=== PATIENT | male | born 1945 | race Caucasian/White ===

== ENCOUNTER 2020-01-14 14:46 | Inpatient (IN) ==
--- NOTE | 2020-01-14 15:31 | EKG Report ---
Test Performed on : 01/14/2020 3:25:23 PM Test Reason : dyspnea/ arrythmia Blood Pressure : / mmHG Vent. Rate : 108 BPM Atrial Rate : 108 BPM P-R Int : 200 ms QRS Dur : 140 ms QT Int : 380 ms P-R-T Axes : 059 010 004 degrees QTc Int : 509 ms Sinus tachycardia. with premature atrial complexes. with aberrant conduction. Right bundle branch block Abnormal ECG When compared with ECG of 05-DEC-2017 08:56, premature ventricular complexes. are no longer present Unconfirmed Result
--- NOTE | 2020-01-14 15:35 | PROVIDER DOCUMENTATION ---
HPI-General Adult - General Chief Complaint: Shortness of Breath Stated Complaint: DIFFICULTY BREATHING COUGH Time Seen by Provider: 01/14/20 14:49 Source: patient Allergies/Adverse Reactions: Patient Allergies Allergy/AdvReac Type Severity Reaction Status Date / Time oxycodone [From Percocet] AdvReac DIZZINESS Verified 01/14/20 15:30 Home Medications: Home Medication List Medication Instructions Recorded Confirmed Last Taken Type Diltiazem HCl [Tiazac] 360 mg PO DAILY 10/27/13 01/14/20 12/05/17 06:30 History Losartan/Hydrochlorothiazide 1 each PO DAILY 10/27/13 01/14/20 12/05/17 06:30 History [Hyzaar 100/25 Tablet] Metformin [Glucophage] 500 mg PO BID CC 10/27/13 01/14/20 12/01/17 History Potassium Chloride [Klor-Con M20] 20 meq PO BID 10/27/13 01/14/20 12/05/17 06:30 History Pravastatin Sodium [Pravachol] 40 mg PO QHS 10/27/13 01/14/20 12/04/17 20:00 History Tiotropium [place] Inhaler 1 puff INH RTDAILY 10/27/13 01/14/20 12/04/17 08:00 History [Spiriva] Aspirin 81 mg PO DAILY 08/08/17 01/14/20 12/01/17 History Omeprazole 40 mg PO QHS 08/08/17 01/14/20 12/04/17 08:00 History Budesonide/Formoterol Inhaler 2 puff INH RTBID 08/15/17 01/14/20 12/04/17 20:00 History [Symbicort 160/4.5 Microgm Inhaler] Amlodipine [Norvasc] 10 mg PO DAILY 12/04/17 01/14/20 12/05/17 06:30 History - History of Present Illness -Gen Adult Nature of Presenting Problems: 74yowm presents with c/o dyspnea, cough, orthopnea, PND, nausea, and decreased appetite for the past 1.5 weeks that has been progressively worsening. Patient does have a PMH of DM, atrial fibrillation, COPD and CHF. Patient states that he also still smokes about 4 cigarettes a day and has smoked for 65years. Location of Pain/Injury: reports: abdomen, back Quality of Pain: reports: cramping Severity: reports: moderate Onset/Duration: reports: other (1.5weeks ago) Timing: reports: still present Context/Activities at Onset: reports: none Modifying Factors: improves with: nothing Associated Symptoms: reports: cough, fatigue, fever/chills, loss of appetite, malaise, nausea, shortness of breath Similar Symptoms Previously?: No Recently seen or treated by another doctor?: No Review of Systems - Adult - REVIEW OF SYSTEMS - ADULT Constitutional: reports: chills, fatique Eyes: reports: no symptoms reported Ears, Nose, Mouth & Throat: reports: no symptoms reported Cardiovascular: reports: no symptoms reported Respiratory: reports: cough, dyspnea on exertion, shortness of breath, wheezing Gastrointestinal: reports: nausea, poor appetite Genitourinary: reports: no symptoms reported Musculoskeletal: reports: back pain Integumentary: reports: no symptoms reported Neurological: reports: no symptoms reported Psychiatric: reports: no symptoms reported Endocrine: reports: no symptoms reported Hematologic/Lymphatic: reports: no symptoms reported Allergic/Immunologic: reports: no symptoms reported All Other Systems: Reviewed and Negative Past History - Adult - PAST MEDICAL HISTORY-ADULT Review of Records: reports: Old Records Reviewed, Nursing Assessment Review, Medications Reviewed, Social history reviewed & non-contributory. Major Childhood Illnesses: reports: denies history Cardiovascular: reports: HTN Respiratory: reports: COPD Gastrointestinal: reports: GERD Obstetrical/Gynecological: reports: denies history Genitourinary: reports: denies history Musculoskeletal: reports: denies history Neurological: reports: denies history Psychiatric: reports: denies history Endocrine/Immune: reports: Diabetes Other Conditions: reports: denies history Additional History: foot surgery with osteomylatis - IMMUNIZATION STATUS Childhood Immunizations: See Nurse Assessment Flu Vaccine: See Nurse Assessment - FAMILY HISTORY Family History: reviewed, not pertinent - SOCIAL HISTORY Smoking: cigarettes, less than 1 pack/day Provider spent 3-5 mins advising pt. on dangers of tobacco.: Discussed manners to quit use, and f/u contacts for add'l counseling. Substance Use: alcohol Alcohol Use Frequency: occasionally Number of drinks per typical drinking period:: 2 drinks Living Situation: alone Physical Exam-General - PHYSICAL EXAM-ADULT Initial Vital Signs Reviewed: Yes - CONSTITUTIONAL General Appearance: alert, mild distress - EYES Eyes: PERRL/EOMI, pink conjunctivae - HEAD, EARS, NOSE, MOUTH & THROAT HENMT: moist mucous membranes - NECK Neck: non-tender, full range of motion - RESPIRATORY Respiratory: respiratory distress, accessory muscle use, crackles, rales, rhonchi, wheezing - CARDIOVASCULAR Cardiovascular: normal peripheral pulses, no JVD. negative: regular rate, rhythm, no edema - GASTROINTESTINAL (ABDOMEN) Abdominal Exam: normal bowel sounds, non tender, soft - LYMPHATIC Lymphatic: no adenopathy - MUSCULOSKELETAL Extremity: normal range of motion, non-tender, normal gait. negative: no pedal edema (right leg edema) Peripheral Pulses: radial (R): 2+, radial (L): 2+, dorsalis-pedis (R): 2+, dorsalis-pedis (L): 2+ - SKIN Integumentary: warm/dry - NEUROLOGIC Neurologic: grossly normal - PSYCHIATRIC Psych/Mental Status: normal thought process, oriented x 3 Progress - PLAN OF CARE/RESULTS Progress/Plan/Lab Results: Vital Signs - 8 hr 01/14/20 14:54 Temperature 99 F Pulse Rate 99 H Respiratory Rate 26 H Blood Pressure 122/60 O2 Sat by Pulse Oximetry 89 L Orders Category Date Time Status NEWS Score 2-4:Order NEWS Lactate Series NOW Care 01/14/20 15:26 Ordered Nursing- Obtain EKG ONCE Care 01/14/20 15:26 Ordered CHEST-PORTABLE [RAD] Stat Exams 01/14/20 15:24 Ordered CBC WITH DIFF [HEME] Stat Lab 01/14/20 15:24 Uncollected CK PROFILE [SP CHEM] Stat Lab 01/14/20 15:24 Uncollected COMPREHENSIVE METABOLIC PANEL [CHEM] Stat Lab 01/14/20 15:24 Uncollected D-DIMER [COAG] Stat Lab 01/14/20 15:24 Uncollected PRO B-NATRIURETIC PEPTIDE Stat Lab 01/14/20 15:24 Uncollected PROTIME WITH INR [COAG] Stat Lab 01/14/20 15:24 Uncollected TROPONIN T HIGH SENSITIVITY Stat Lab 01/14/20 15:24 Uncollected URINALYSIS W/POSS RFLX CULT [URINALYSIS] Stat Lab 01/14/20 15:24 Uncollected EKG [EKG] Stat Ther 01/14/20 15:26 Ordered Result Diagrams: 01/14/20 15:20 01/14/20 15:20 - XRAY 1 XRAY Study: Chest Impression: See EMR Report (FINDINGS: Stable cardiomegaly. There is slight worsening hazy interstitial infiltrates in the lung bases bilaterally. No pneumothorax or significant pleural effusion. IMPRESSION: Cardiomegaly. Worsening bibasilar infiltrates most suggestive of pulmonary edema. Electronically signed by Elia Domínguez 01/14/2020 4:16 PM) - CONSULTS/PCP/HOSPITALIST Notification #1 *Consult/PCP/Hospitalist*: DWIGHT Mcmahon for DR. Wright Time Discussed: 16:45 Reason/Comments: admit patient Consult Disposition: Will see in ED Departure - Departure Date of Disposition Decision: 01/14/20 Time of Disposition Decision: 16:48 DIAGNOSIS: GISELL (acute kidney injury) Pneumonia Qualifiers: Pneumonia type: due to unspecified organism Laterality: bilateral Lung location: lower lobe of lung Qualified Code(s): J18.1 - Lobar pneumonia, unspecified organism Disposition: ADMITTED INPATIENT 09 Certified Medical Emergency: Emergent Condition: Fair Referrals and Follow-Ups: Nidhi Cooper MD [Primary Care Provider] - - Critical Care Note This patient required my direct & personal management of CC.: No Attestation - Physician/ HECTOR Attestation Patient care was provided by Advanced Practice Provider:: Yes Advanced Practice Provider:: Mindy Sheppard Advanced Practice Provider documentation review:: The Mid-level provider documentation, treatment plan and medical decision making was reviewed by the physician who agrees with all treatment and medical decision making by the MLP. The physician spent face to face time with patient:: No Advanced Practice Provider documentation review:: Supervising physician onsite and consulted in the evaluation and care of this patient. The physician did not have a face to face encounter with the patient.
[2020-01-14 15:40] LABS: BASO# 0.11 X1000 (0.0-0.2); BASO% 0.5 % (0.0-0.8); EOS# 0.02 X1000 (0.0-0.7); EOS% 0.1 % (0.0-10.0); HEMATOCRIT 29.2 % (42.0-52.0); HEMOGLOBIN 8.8 g/dL (14.0-18.0); IMM GRAN# 0.12 X1000 (0.0-0.04); IMM GRAN% 0.5 % (0.0-0.5); LYMPH# 0.93 X1000 (1.2-3.4); LYMPH% 4.1 % (20.5-51.1); MCH 18.7 PG (27-31); MCHC 30.1 g/dL (33-37); MONO# 2.52 X1000 (0.11-0.59); MONO% 11.2 % (1.7-9.3); MPV 9.2 FL (7.4-10.4); NEUT# 18.89 X1000 (1.4-6.5); NEUT% 83.6 % (42.2-75.2); PLT 382 X1000 (130-400); RBC 4.71 XMIL (4.7-6.1); RDW 20.5 % (11.5-14.5); WBC 22.59 X1000 (4.8-10.8)
[2020-01-14 15:47] LABS: INR 1.58; PROTIME 19.2 Seconds (11.0-16.0)
[2020-01-14 16:11] LABS: ALB/GLOB RATIO 1.1; ALBUMIN 3.4 g/dL (3.5-5.0); CALCIUM 9.2 mg/dL (8.8-10.2); CREATININE 1.5 mg/dL (0.7-1.2); POTASSIUM 3.4 mmol/L (3.5-5.1); TOTAL BILIRUBIN 0.56 mg/dL (0.20-1.00); TOTAL PROTEIN 6.5 g/dL (6.3-8.3)
--- NOTE | 2020-01-14 16:19 | Diag Imaging Result Doc PS360 ---
CHEST-PORTABLE - 01/14/2020 INDICATION: dyspnea COMPARISON: 02/21/2018 FINDINGS: Stable cardiomegaly. There is slight worsening hazy interstitial infiltrates in the lung bases bilaterally. No pneumothorax or significant pleural effusion. IMPRESSION: Cardiomegaly. Worsening bibasilar infiltrates most suggestive of pulmonary edema. Electronically signed by Elia Domínguez 01/14/2020 4:16 PM
[2020-01-14] MEDS ORDERED: ROCEPHIN 1 GM in NS 50 ML IV ONE (16:29)
[2020-01-14] MEDS ORDERED: ZITHROMAX 500 MG/NS 500 MG/250 ML IVPB IV ONE (16:29)
[2020-01-14] MEDS ORDERED: SOLU-MEDROL IV ONE (17:36)
--- NOTE | 2020-01-14 18:11 | HISTORY AND PHYSICAL ---
PRIMARY CARE PHYSICIAN: Dr. Nidhi Cooper. CHIEF COMPLAINT: Shortness of breath, cough, decreased appetite over the past week and a half that has progressively worsened. HISTORY OF PRESENTING ILLNESS: This is a 74-year-old male who presents to [facility] with complaints of shortness of breath, cough, orthopnea, and decreased appetite over the past week and a half that progressively worsened. Has a history of COPD and CHF and continues to smoke about 4 cigarettes a day. He has smoked for about 65 years. When he arrived, he had an O2 saturation of 89% on 2 L. His white blood cell count was 22.59. BUN was 28 with a creatinine of 1.5. Chest x-ray showed slightly worsening hazy interstitial infiltrates in the lung bases bilaterally. So, he will be admitted to the medical unit for further evaluation and treatment. PAST MEDICAL HISTORY: Hypertension, COPD, GERD and diabetes type 2. PAST SURGICAL HISTORY: Hiatal hernia and a foot surgery. FAMILY HISTORY: Reviewed and noncontributory. SOCIAL HISTORY: He currently smokes approximately 4 cigarettes a day and has been a smoker for about 65 years. He denied any alcohol or illicit drug use. ALLERGIES: Oxycodone. HOME MEDICATIONS: He takes Norvasc 10 mg p.o. daily, aspirin 81 mg p.o. daily, Symbicort 160/4.5, a 2-puff inhalation b.i.d., Tiazac 360 mg p.o. daily, losartan/hydrochlorothiazide 100/25 one p.o. daily (will be held), metformin 500 mg p.o. b.i.d. (will be held), omeprazole 40 mg p.o. at bedtime, potassium 20 mEq p.o. b.i.d. Pravachol 40 mg p.o. at bedtime and Spiriva 1 puff inhalation daily. LABORATORY DATA: Showed a white blood cell count of 22.59, hemoglobin 8.8, hematocrit 29.2, platelets 382, PT and INR of 19.2 and 1.58, with a D-dimer of less than 0.27. Sodium of 133, potassium of 3.4, chloride of 93, CO2 of 25, BUN of 28, creatinine of 1.5, glucose of 125. Cardiac enzyme was negative. Plasma lactate of 2.2. Chest x-ray showed slightly worsening hazy interstitial infiltrates in the lung bases bilaterally, suggestive of pulmonary edema, and some cardiomegaly. EKG showed sinus tachycardia with PACs with aberrant conduction at 108. REVIEW OF SYSTEMS: He denied any fever, chills, blurred vision, dizziness, chest pain. He has had a productive cough, shortness of breath, orthopnea, decreased appetite, nausea. Denied any vomiting, constipation, diarrhea or burning or hurting with urination. PHYSICAL EXAMINATION: VITAL SIGNS: On arrival he had a temperature of 99, pulse 99, respirations 26 blood pressure 122/60, saturating 89% on 2 L. GENERAL: This is a 74-year-old male who is sitting up in the bed and answers questions appropriately. HEENT: Normocephalic, atraumatic. Normal ENT inspection. Oropharynx and nares are clear. EYES: Pupils are equal, round, and reactive to light and accommodation. Extraocular movements are intact. NECK: Normal inspection, normal range of motion. LUNGS: With some rales, rhonchi and wheezing throughout posterior lung gonzalez. Equal lung expansion and chest wall movement noted. O2 via nasal cannula in use. HEART: Regular rate and rhythm. No murmurs, rubs, or gallops. ABDOMEN: Soft, nontender, nondistended. Bowel sounds are present x4 quadrants. Musculoskeletal: He has 4/5 strength x4 extremities. NEUROLOGICAL: The cranial nerves II-XII appear grossly intact. ASSESSMENT: 1. Bilateral lower lobe pneumonia. 2. Leukocytosis secondary to #1. 3. Acute respiratory failure. 4. Acute kidney injury. 5. Acute chronic obstructive pulmonary disease exacerbation. PLAN: He will be admitted to the medical unit and placed on telemetry, O2 per protocol diabetic diet, incentive spirometry, and turn, cough and deep breathe. We will do SCDs for DVT prophylaxis. Place on Rocephin 1 gram IV every 24 hours, azithromycin 500 IV every 24 hours (he received both doses of those in the emergency room), normal saline at 75 mL/hr. Continue home medications. DuoNeb every 4 hours and Solu-Medrol 80 mg IV every 8 hours. Recheck CBC and BMP in the a.m. Further orders after seen by attending. Dictated by DWIGHT Elena for Tam Wright MD cc: Salome DWIGHT Mata MD Marlin D. Gill, MD I agree with most components of history, physical, assessment and plan. A separate addendum has been dictated. [facility]
[2020-01-14] MEDS ORDERED: CARDIZEM CD PO ONE (18:20)
[2020-01-14] MEDS ORDERED: ASPIRIN PO STA (18:20)
[2020-01-14] MEDS ORDERED: CARDIZEM IV ONE (18:21)
[2020-01-14] MEDS ORDERED: LASIX IV ONE (18:22)
[2020-01-14] MEDS ORDERED: LIPITOR PO ONE (18:22)
--- NOTE | 2020-01-14 18:27 | SEPSIS: TISSUE PERFUSION ASSMT ---
Sepsis: Tissue Perfusion Assmt - Physical Exam Assessment Date: 01/14/20 Time Assessment Initialized: 18:15 Vital Signs: Last Vital Signs Temp 99 F 01/14/20 14:54 Pulse 114 H 01/14/20 18:20 Resp 24 01/14/20 18:20 BP 122/60 01/14/20 14:54 Pulse Ox 89 L 01/14/20 14:54 Height 5 ft 7 in Weight 77.111 kg Lung Sounds: crackles Heart Sounds: Irregular Capillary Refill Time: Less Than 2 Seconds Peripheral Pulse Evaluation: radial (R): 2+, radial (L): 2+, dorsalis-pedis (R): 2+, dorsalis-pedis (L): 2+, posterior tibialis (R): 2+, posterior tibialis (L): 2+ Skin Exam: pink - Alternative Fluid Bolus Bolus Option: Alternative Fluid Resuscitation Bolus for morbidly obese patients with a BMI >30, Refer to [place] Body Weight Chart for Reference. Is patient's BMI >30?: No - Impression Impression: Tissue Perfusion Adequate (No bolus ordered considering suspected CHF.)
[2020-01-14] MEDS: KLOR-CON PO SCH ×3 (18:45→21:45)
[2020-01-14] MEDS: LOVENOX SUBQ SCH (18:45)
--- NOTE | 2020-01-14 18:56 | HISTORY AND PHYSICAL ---
ADDENDUM: This is an addendum to History and Physical dictated by nurse practitioner. I agree with most components of history, physical, assessment, and plan dictated in the nurse practitioner's note. In brief, Mr. Palacios is a 74-year-old man with past medical history of angiographically diagnosed coronary artery disease, managed medically, essential hypertension, noninsulin-dependent diabetes mellitus, COPD, chronic hypoxic respiratory failure on home oxygen, active tobacco abuse, atrial fibrillation on chronic anticoagulation, obstructive sleep apnea, not compliant with CPAP, who comes in with chief complaints of shortness of breath, cough with yellowish expectoration, chest pressure of about 10 days' duration. He also had associated nausea and decreased appetite. In the emergency room, he was found to have temperature of 99 degrees, pulse of 114, respiratory rate 24, blood pressure 122/60, and he was saturating between 85 to 90 percent on 5 L nasal cannula on my evaluation. He was given a dose of ceftriaxone and azithromycin, and hospitalist team was consulted for further management. At the time of my evaluation, Mr. Palacios is not in acute distress. He states that his chest pressure has diminished. He is feeling short of breath, but he states he is pretty close to his baseline. However, cough with expectoration is new. He denies any orthopnea. He is complaining of chills without fever. REVIEW OF SYSTEMS: Positive for chest pressure. Positive for lower extremity edema. Positive for nausea. Positive for poor appetite. Negative for any stent in the past. VITAL SIGNS: Temperature currently 99 degrees, pulse 140 on my evaluation, respiratory rate 24, blood pressure 122/60. He was saturating 89% on 4 L. PHYSICAL EXAMINATION: ORAL CAVITY: Moist. LUNGS: He has inspiratory crackles in the left infrascapular region. CARDIOVASCULAR: S1, S2 normal. Irregularly irregular. No murmur or gallop. No wheeze or rhonchi. Otherwise, air entry bilaterally equal. ABDOMEN: Soft, nontender. NECK: No jugular venous distention. EXTREMITIES: He has mild bilateral lower extremity edema, more pronounced on the right ankle than on the left. NEUROLOGIC: He is alert and oriented x3. LABS: Suggestive of WBC of 22,000, hemoglobin 8.8, platelet of 382,000. His potassium was 3.4, BUN 28, creatinine 1.5, proBNP of 4600. MICROBIOLOGY: Influenza screen is pending. Blood cultures are in Lab. IMAGING: Chest x-ray suggests cardiomegaly with bibasilar infiltrates, suggestive of pulmonary edema. ASSESSMENT AND PLAN: 1. Sepsis and acute hypoxic respiratory failure, due to left lower lobe pneumonia and acute pulmonary edema. 2. Left lower lobe bacterial pneumonia. 3. History of obstructive sleep apnea. 4. Atrial fibrillation with rapid ventricular response. 5. Microcytic anemia. 6. Hyponatremia, hypokalemia, hypochloremia, and acute kidney injury. 7. Active tobacco abuse with history of chronic obstructive pulmonary disease, with mild acute exacerbation. 8. History of noninsulin-dependent diabetes mellitus. 9. History of coronary artery disease, with elevated troponin and suspicion for acute systolic congestive heart failure. PLAN: 1. I will start patient on oxygen and will transition him to potentially Ventimask and BiPAP as needed. 2. I will treat him with intravenous ceftriaxone and azithromycin. Follow up with blood cultures, sputum culture, urine antigen results. 3. I will treat him with inhaled bronchodilators for mild chronic obstructive pulmonary disease exacerbation and intravenous steroids. 4. I will give him stat dose of aspirin, statin, therapeutic anticoagulation dose of enoxaparin, and trend troponins, and also follow up with echocardiogram. 5. I will admit patient to [facility]. Plan of care discussed with him. He was counseled about smoking cessation. He was allowed to ask questions. All of his questions were satisfactorily answered. cc: Tam Wright MD
[2020-01-14 19:13] LABS: URINE SOURCE CLEAN CATCH
[2020-01-14 19:16] LABS: BILIRUBIN URINE NEGATIVE (NEGATIVE); BLOOD URINE NEGATIVE (NEGATIVE); CLARITY CLEAR (CLEAR); COLOR YELLOW; GLUCOSE URINE NEGATIVE (NEGATIVE); KETONE URINE NEGATIVE (NEGATIVE); LEUKOCYTES URINE NEGATIVE (NEGATIVE); NITRITE URINE NEGATIVE (NEGATIVE); PROTEIN URINE NEGATIVE (NEGATIVE); SP GRAVITY URINE 1.015; UROBILINOGEN URINE 0.2 EU/dL (0.2-1.0)
[2020-01-14 19:28] LABS: URINE BACTERIA NEGATIVE /HFP; URINE EPITHELIAL CELLS <10 /HPF (<10); URINE RBC <10 /HPF (<10); URINE WBC <10 /HPF (<10)
[2020-01-14 19:33] LABS: IRON SATURATION 4 %; TIBC 330 ug/dL; TOTAL IRON 12 ug/dL (53-167); UNBOUND IRON 318 ug/dL (112-346)
[2020-01-14] MEDS ORDERED: NS 1,000 ML IV SCH (21:15)
[2020-01-14] MEDS ORDERED: TYLENOL PO PRN (21:15)
[2020-01-14] MEDS ORDERED: KLOR-CON PO SCH (21:15)
[2020-01-14] MEDS ORDERED: PRAVACHOL PO SCH (21:15)
[2020-01-14] MEDS: HUMALOG SUBQ SCH (21:43)
[2020-01-14] MEDS: PRILOSEC PO SCH (21:44)
[2020-01-14] MEDS: DUONEB (A & A) INH SCH ×2 (22:42→23:40)
[2020-01-14] MEDS: SYMBICORT 160/4.5 MICROGM INHALER INH SCH (23:40)
[2020-01-15] MEDS ORDERED: SOLU-MEDROL IV SCH (01:30)
[2020-01-15] MEDS: DUONEB (A & A) INH SCH ×2 (03:35→08:15)
[2020-01-15 06:25] LABS: BASO# 0.03 X1000 (0.0-0.2); BASO% 0.1 % (0.0-0.8); HEMOGLOBIN 8.2 g/dL (14.0-18.0); IMM GRAN% 0.4 % (0.0-0.5); LYMPH# 0.41 X1000 (1.2-3.4); LYMPH% 1.7 % (20.5-51.1); MCH 18.3 PG (27-31); MCHC 29.3 g/dL (33-37); MCV 62.5 FL (81-99); MONO# 0.29 X1000 (0.11-0.59); MONO% 1.2 % (1.7-9.3); MPV 9.1 FL (7.4-10.4); NEUT# 23.09 X1000 (1.4-6.5); NEUT% 96.6 % (42.2-75.2); PLT 379 X1000 (130-400); RBC 4.48 XMIL (4.7-6.1); RDW 20.5 % (11.5-14.5); WBC 23.92 X1000 (4.8-10.8)
[2020-01-15 06:40] LABS: CALCIUM 8.9 mg/dL (8.8-10.2); CREATININE 1.4 mg/dL (0.7-1.2); MAGNESIUM 1.3 mg/dL (1.5-2.7); POTASSIUM 3.2 mmol/L (3.5-5.1)
[2020-01-15 06:50] LABS: LYMPHS 1 % (21-51); MONO 1 % (1-9); SEGS 98 % (42-75)
[2020-01-15] MEDS: HUMALOG SUBQ SCH ×4 (06:56→21:01)
[2020-01-15] MEDS: LOVENOX SUBQ SCH ×2 (06:57→18:46)
--- NOTE | 2020-01-15 07:26 | EKG Report ---
Test Performed on : 01/14/2020 7:33:46 PM Test Reason : ED. NO EKG ORDER FOR MUSE Blood Pressure : / mmHG Vent. Rate : 110 BPM Atrial Rate : 129 BPM P-R Int : 000 ms QRS Dur : 138 ms QT Int : 330 ms P-R-T Axes : 000 017 011 degrees QTc Int : 446 ms Atrial fibrillation. with rapid ventricular response. Right bundle branch block Abnormal ECG When compared with ECG of 14-JAN-2020 15:25, (Unconfirmed) Atrial fibrillation. has replaced Sinus rhythm. Unconfirmed Result
[2020-01-15] MEDS: SPIRIVA INH SCH (08:15)
[2020-01-15] MEDS: SYMBICORT 160/4.5 MICROGM INHALER INH SCH ×2 (08:15→19:55)
[2020-01-15] MEDS: KLOR-CON PO SCH ×2 (10:20→21:02)
[2020-01-15] MEDS: CARDIZEM CD PO SCH (10:20)
[2020-01-15] MEDS: ASPIRIN PO SCH (10:20)
[2020-01-15] MEDS: NORVASC PO SCH (10:20)
[2020-01-15] MEDS: PREDNISONE PO SCH (10:20)
[2020-01-15] MEDS: POTASSIUM CHLORIDE 20 MEQ/SWI 20 MEQ/100 ML IVPB IV SCH ×2 (10:25→17:08)
[2020-01-15] MEDS: FERROUS SULFATE PO SCH (10:25)
[2020-01-15] MEDS: MAGNESIUM SULFATE 2 GM/S.W.I. 2 GM/50 ML IVPB IV SCH ×2 (10:25→11:47)
[2020-01-15] MEDS: LIPITOR PO SCH (10:25)
--- NOTE | 2020-01-15 10:49 | PROGRESS NOTE ---
DATE: 01/15/2020 INTERVAL HISTORY: No acute events overnight. Mr. Palacios was started on BiPAP and was transferred to [facility]. His troponin had flat trend. SUBJECTIVE: In the morning time, Mr. Palacios is feeling significantly better. He denies any more chest pressure. His shortness of breath has improved. His cough has improved. He is feeling chilly, but denies any fever. REVIEW OF SYSTEMS: Negative for nausea. Negative for vomiting. Negative for abdominal pain. Negative for burning while passing urine. Negative for diarrhea. OBJECTIVE: Vital Signs: Temperature of 98.3 degrees, pulse 115, respiratory rate 18, blood pressure 132/85, he is saturating 93% on 6 L nasal cannula. General: Mr. Palacios is not in any acute distress. HEENT: Oral cavity is moist. He has diminished air entry with inspiratory crackles in the left infrascapular region. Otherwise, adequate air entry to bilateral lung gonzalez. Mild end-expiratory wheezes. No rhonchi. Heart: S1, S2 normal. Irregularly irregular, tachycardic. No murmur or gallop. Abdomen: Soft, nontender. Active bowel sounds. Extremities: He has mild lower extremity edema around ankles, more pronounced on the right than on the left. Neurologic: He is alert and oriented x3. LABORATORY DATA: WBC of 23,000, hemoglobin 8.2, with platelets of 379,000. His potassium is 3.2, BUN of 28, creatinine 1.4. His troponin is showing a flat trend. His magnesium is 1.3. Sputum culture and blood culture are in lab. Influenza screen was negative. No new imaging. ASSESSMENT AND PLAN: 1. Sepsis and acute hypoxic respiratory failure due to left lower lobe pneumonia and partly a component of acute pulmonary edema. Continue inhaled bronchodilators, intravenous ceftriaxone and azithromycin. Follow up blood cultures, sputum culture, and urine antigen results. 2. Acute pulmonary edema with bilateral lower extremity edema and history of coronary artery disease diagnosed angiographically in 2016 and managed medically. He received a 1 time dose of intravenous Lasix. I will follow up with echocardiogram to assess his ejection fraction. Based on that, I will order further Lasix dosing. His troponins were showing flat trend. 3. Atrial fibrillation with rapid ventricular response. Continue oral diltiazem, and I will continue enoxaparin, therapeutic dose, for primary cerebrovascular accident prophylaxis. He claims to be using Eliquis at home, and I will resume it as appropriate. Continue home aspirin, and I added high-dose atorvastatin for his hyperlipidemia. 4. Microcytic anemia with iron deficiency without history of melena, hematochezia. This could be in the setting of chronic blood loss due to use of anticoagulation vs other causes. He stated that he had colonoscopy about 2 years ago, which was unremarkable. I will advise him outpatient followup. Start him on iron supplementation and follow up occult blood. 5. Hypokalemia and hypomagnesemia, currently being repleted. 6. Others. Continue sliding scale insulin for noninsulin-dependent diabetes mellitus. He was counseled about tobacco cessation for his history of chronic obstructive pulmonary disease. 7. Disposition. Monitor the patient in [facility]. Plan of care discussed with him. His questions have been answered. I called his daughter to update her about Mr. Palacios's clinical condition and left her a voice message. 35 minutes were spent in taking care of him. cc: Tam Wright MD MTDD
[2020-01-15] MEDS: XOPENEX HFA INH SCH ×4 (11:49→23:30)
[2020-01-15] MEDS: ATROVENT HFA INH SCH ×2 (15:53→19:55)
[2020-01-15] MEDS ORDERED: ZITHROMAX 500 MG/NS 500 MG/250 ML IVPB IV SCH (16:00)
[2020-01-15] MEDS ORDERED: ROCEPHIN 1 GM in NS 50 ML IV SCH (17:00)
[2020-01-15] MEDS ORDERED: PRAVACHOL PO SCH (21:00)
[2020-01-15] MEDS: PRILOSEC PO SCH (21:02)
[2020-01-16] MEDS: XOPENEX HFA INH SCH ×6 (03:35→23:26)
[2020-01-16] MEDS: ATROVENT HFA INH SCH ×4 (03:35→20:20)
[2020-01-16] MEDS: LOVENOX SUBQ SCH ×2 (06:06→18:15)
[2020-01-16] MEDS: HUMALOG SUBQ SCH ×4 (06:11→22:56)
[2020-01-16 06:35] LABS: CALCIUM 8.9 mg/dL (8.8-10.2); CREATININE 1.6 mg/dL (0.7-1.2); MAGNESIUM 2.2 mg/dL (1.5-2.7); POTASSIUM 3.8 mmol/L (3.5-5.1)
[2020-01-16] MEDS: SPIRIVA INH SCH (08:04)
[2020-01-16] MEDS: SYMBICORT 160/4.5 MICROGM INHALER INH SCH ×2 (08:05→20:19)
[2020-01-16] MEDS: KLOR-CON PO SCH ×2 (08:10→20:09)
[2020-01-16] MEDS: ASPIRIN PO SCH (08:10)
[2020-01-16] MEDS: LIPITOR PO SCH (08:10)
[2020-01-16] MEDS: FERROUS SULFATE PO SCH (08:10)
[2020-01-16] MEDS: NORVASC PO SCH (08:10)
[2020-01-16] MEDS: CARDIZEM CD PO SCH (08:11)
[2020-01-16] MEDS: PREDNISONE PO SCH (08:11)
--- NOTE | 2020-01-16 10:07 | ECHO REPORT ---
ORDER DATE: 01/14/2020 MEASUREMENTS: Left ventricular internal diameter end diastole 4.8, aortic root 3.2, left atrium 3.6. SUMMARY: 1. Very difficult study for interpretation due to very limited acoustic window quality. 2. The aortic valve is trileaflet and appears mildly sclerotic with normal opening evident on 2- dimensional images. The peak gradient across aortic valve is 12 mmHg with a mean gradient of 6 mmHg. Mitral and tricuspid valves are without gross structural abnormality while the pulmonic valve is not seen. There is mild tricuspid regurgitation. The estimated systolic PA pressure by Doppler is 45 to 50 mmHg suggesting moderate pulmonary hypertension. The aortic root is normal size. 3. Normal left ventricular chamber size with mild concentric left ventricular hypertrophy suggested. The estimated left ventricular ejection fraction appears to be at least 65%. No regional wall motion abnormality can be appreciated. The left atrium is mildly enlarged on 2- dimensional images. The right atrium and right ventricle are normal in size with grossly preserved right ventricular systolic function. 4. No pericardial effusion. 5. Appearance of the inferior vena cava suggests normal central venous pressure. cc: MD Tam Andrade MD
[2020-01-16 10:22] LABS: BASO# 0.03 X1000 (0.0-0.2); BASO% 0.1 % (0.0-0.8); EOS# 0.07 X1000 (0.0-0.7); EOS% 0.3 % (0.0-10.0); HEMATOCRIT 26.9 % (42.0-52.0); HEMOGLOBIN 7.8 g/dL (14.0-18.0); IMM GRAN# 0.17 X1000 (0.0-0.04); IMM GRAN% 0.8 % (0.0-0.5); LYMPH# 0.67 X1000 (1.2-3.4); MCH 18.2 PG (27-31); MCV 62.9 FL (81-99); MONO# 0.93 X1000 (0.11-0.59); MONO% 4.2 % (1.7-9.3); MPV 9.5 FL (7.4-10.4); NEUT# 20.51 X1000 (1.4-6.5); NEUT% 91.6 % (42.2-75.2); PLT 449 X1000 (130-400); RBC 4.28 XMIL (4.7-6.1); RDW 20.6 % (11.5-14.5); WBC 22.38 X1000 (4.8-10.8)
[2020-01-16 10:52] LABS: ANISOCYTOSIS 2+; BANDS 6 % (0-1); LYMPHS 6 % (21-51); MICROCYTOSIS 3+; SEGS 88 % (42-75); TARGET CELLS 1+
--- NOTE | 2020-01-16 11:52 | PROGRESS NOTE ---
DATE: 01/16/2020 SUBJECTIVE: The patient reports feeling fine. Not short of breath. He was walking in the room upon my examination. OBJECTIVE: Vital Signs: Temperature 97.4 degrees, heart rate 82, respiratory rate 19, blood pressure 128/61, and O2 saturation 95% on 6 liters nasal cannula. General: This is a chronically ill-looking 74-year-old male, lying in bed, in no acute distress. Cardiovascular: Irregularly irregular heart rhythm. No murmurs, gallops, or rubs noted. Respiratory: Wheezing and crackles noted in both pulmonary gonzalez, mostly noted in the left base. The patient is not using any accessory muscles or having work of breathing. Abdomen: Soft, nontender to palpation. Bowel sounds present. No organomegaly. Extremities: No clubbing, cyanosis, there is edema in both lower extremities. More pronounced on the right. Neurological: Patient alert and oriented x3. Moves 4 extremities. LABORATORY DATA: White cell count 22.38, hemoglobin 7.8, hematocrit 26.9, platelets 449,000. BMP remarkable for potassium 3.8 and creatinine 1.6 and sodium 130. ASSESSMENT AND PLAN: 1. Sepsis and acute hypoxemic respiratory failure secondary to left lower lobe pneumonia, partially component of acute pulmonary edema. Patient white cell count continues to be very elevated, basically 22,000 over the last 3 days, so I think at this point I am going to change antibiotics to Teflaro and Zosyn. We will continue to check complete blood count daily. We will follow up blood cultures, sputum culture and urine culture as well. 2. Acute pulmonary edema with bilateral lower lobe extremity edema and history of coronary artery disease. The patient has been given 1 dose of Lasix. An echocardiogram has been ordered, which basically showed ejection fraction at least 65% with no regional wall motion abnormality. Apparently, there is a moderate pulmonary hypertension. So at this point we will continue to provide Lasix; in this case, it is going to be 40 mg IV daily. 3. Atrial fibrillation with rapid ventricular rate. The patient is on Cardizem CD 360 mg p.o. daily, and heart rate is well controlled. We will continue with same management. 4. Microcytic anemia with iron deficiency with a history of melena. Hemoglobin has dropped from 8.2 to 7.8. We will continue to monitor, and we may need to transfuse if needed. 5. Hypokalemia and hyponatremia, resolved. 6. Diabetes mellitus type 2. We will continue with sliding scale insulin and Accu-Chek before meals and also at bedtime. 7. Disposition. We will continue to monitor this patient closely. cc: Odell Riggs MD
[2020-01-16] MEDS: ZOSYN 2.25 GM in NS 50 ML IV SCH ×2 (12:15→18:15)
[2020-01-16] MEDS: ZYVOX 600 MG/D5W 600 MG/300 ML IVPB IV SCH (13:00)
--- NOTE | 2020-01-16 13:28 | Extremity Venous Study ---
PROCEDURE NAME: Venous U/S Right Leg - 01/14/2020 RIGHT LOWER EXTREMITY VENOUS DUPLEX: REFERRING PHYSICIAN: Dr. Wright. READING PHYSICIAN: Dr. Sneed. LOADER OPERATOR: Jomar. INDICATION: Shortness of breath. FINDINGS: The deep and superficial veins of both lower extremities were imaged throughout their course. They are compressible, patent without thrombus. INTERPRETATION: No DVT or SVT of either lower extremity. cc: MD Tam Ridley MD
[2020-01-16] MEDS: LASIX IV SCH (14:16)
[2020-01-16] MEDS: PRILOSEC PO SCH (20:09)
[2020-01-17] MEDS: ZYVOX 600 MG/D5W 600 MG/300 ML IVPB IV SCH ×2 (00:31→13:13)
[2020-01-17] MEDS: ZOSYN 2.25 GM in NS 50 ML IV SCH ×3 (00:31→12:44)
[2020-01-17] MEDS: XOPENEX HFA INH SCH ×3 (03:14→11:42)
[2020-01-17] MEDS: ATROVENT HFA INH SCH ×2 (03:14→08:20)
[2020-01-17 06:12] LABS: BASO# 0.02 X1000 (0.0-0.2); BASO% 0.1 % (0.0-0.8); HEMATOCRIT 26.3 % (42.0-52.0); HEMOGLOBIN 7.7 g/dL (14.0-18.0); IMM GRAN# 0.22 X1000 (0.0-0.04); IMM GRAN% 1.3 % (0.0-0.5); LYMPH# 0.69 X1000 (1.2-3.4); LYMPH% 4.1 % (20.5-51.1); MCH 18.4 PG (27-31); MCHC 29.3 g/dL (33-37); MCV 62.9 FL (81-99); MONO# 1.54 X1000 (0.11-0.59); MONO% 9.1 % (1.7-9.3); MPV 8.9 FL (7.4-10.4); NEUT# 14.51 X1000 (1.4-6.5); NEUT% 85.4 % (42.2-75.2); PLT 504 X1000 (130-400); RBC 4.18 XMIL (4.7-6.1); RDW 20.3 % (11.5-14.5); WBC 16.98 X1000 (4.8-10.8)
[2020-01-17] MEDS: LOVENOX SUBQ SCH (06:32)
[2020-01-17] MEDS: HUMALOG SUBQ SCH ×2 (06:36→12:44)
[2020-01-17 06:37] LABS: CALCIUM 9.1 mg/dL (8.8-10.2); CREATININE 1.9 mg/dL (0.7-1.2); POTASSIUM 4.8 mmol/L (3.5-5.1)
[2020-01-17 07:07] LABS: BANDS 4 % (0-1); LYMPHS 1 % (21-51); MONO 4 % (1-9); NRBC 1 % (0-0); SEGS 89 % (42-75)
[2020-01-17 07:08] LABS: ANISOCYTOSIS 1+; HYPOCHROM 2+; LARGE PLATELETS 1+; MICROCYTOSIS 2+; POIKILOCYTOSIS 1+
[2020-01-17] MEDS: SYMBICORT 160/4.5 MICROGM INHALER INH SCH (08:20)
[2020-01-17] MEDS: SPIRIVA INH SCH (08:20)
[2020-01-17] MEDS: CARDIZEM CD PO SCH (08:49)
[2020-01-17] MEDS: NORVASC PO SCH (08:49)
[2020-01-17] MEDS: FERROUS SULFATE PO SCH (08:49)
[2020-01-17] MEDS: PREDNISONE PO SCH (08:49)
[2020-01-17] MEDS: KLOR-CON PO SCH (08:49)
[2020-01-17] MEDS: LIPITOR PO SCH (08:49)
[2020-01-17] MEDS: ASPIRIN PO SCH (08:49)
[2020-01-17] MEDS: LASIX IV SCH (08:49)
[2020-01-17 11:37] VITALS: BP 139/61
--- NOTE | 2020-01-17 12:09 | DISCHARGE SUMMARY ---
ADMISSION DATE: 01/14/2020 DISCHARGE DATE: 01/17/2020 REASON FOR ADMISSION: He is a patient of Dr. Nidhi Cooper, presented on 01/14/2020 with shortness of breath, cough, decreased appetite for the past week and a half. HISTORY OF PRESENT ILLNESS: This is a 74-year-old who presented to [facility] with complaints shortness of breath, cough, orthopnea, and decreased appetite over the past week. He has a history of COPD, congestive heart failure. Continues to smoke about 4 cigarettes a day. He has smoked for about 65 years. When he arrived, his O2 saturation was 89% on 2 L, white cell count was 22,590, BUN was 28, creatinine was 1.5. X-ray showed slight worsening, hazy interstitial infiltrates, so admitted to the hospital. PAST MEDICAL HISTORY: Hypertension, COPD, gastroesophageal reflux and diabetes mellitus type 2. ADMISSION DIAGNOSES: 1. Bilateral lower lobe pneumonia. 2. Leukocytosis. 3. Acute respiratory failure. 4. Acute kidney injury. 5. Acute exacerbation of chronic obstructive pulmonary disease. He is on home O2 already. HOSPITAL COURSE: His chest x-ray on 01/14/2020, cardiomegaly, worsening bibasilar infiltrates mostly suggestive of pulmonary edema. His echocardiogram done on 01/14/2020, very difficult study for interpretation. Normal left ventricular size, mild concentric left ventricular hypertrophy. Estimated left ventricular ejection fraction appears to be at least 65%. No regional wall motion abnormality appreciated. Pulmonary pressure estimated about 45 to 50 mmHg. No significant valvular dysfunction. The patient showed steady improvement and was requesting to go home on 01/17/2020. REVIEW OF HIS MEDICATION: I think we will send him home on his Norvasc 10 mg a day, aspirin 81 mg a day, Symbicort 160/4.5 two puffs twice a day, Tiazac 360 mg a day, losartan/hydrochlorothiazide 100/25 one a day, metformin 500 mg p.o. b.i.d., omeprazole 40 mg a day, Klor-Con 20 mEq p.o. b.i.d., Pravachol 40 mg a day and Spiriva 1 puff daily. Currently, he was getting Zosyn for antibiotic. His blood cultures were negative from 01/14/2020. Sputum culture is unremarkable. Influenza swabs negative for A and B, so I will put him on Levaquin 500 mg p.o. daily for another 7 days and he will follow up with his primary care physician. We will let him go home today at his request. cc: Jim Hernandez MD
== END 2020-01-17 14:13 | disposition home or self-care (01) | DRG 193 ==
LOC: ED 14:46 → SUATTDRO 20:50 → 2N 20:50
PROVIDERS: ATTEND Emergency Medicine

== ENCOUNTER 2020-01-28 12:26 | Inpatient (IN) ==
[2020-01-28 13:38] LABS: ALLEN TEST YES; BE 0.9 mmoll (-3.0-3.0); BLOOD TYPE ARTERIAL; HCO3-(ACT) 25.6 mmoll (20.0-26.0); METHB 0.2 % (0.0-1.5); O2(CT) 10.4 mL/dL (15.0-23.0); O2HB 91.4 % (95.0-99.0); PCO2(98.6) 38 mmHg (35-45); PO2(98.6) 70 mmHg (60-100); SAMPLE BLOOD; SAO2 97.5 % (95.0-100.0); pH(98.6) 7.43 (7.35-7.45)
--- NOTE | 2020-01-28 13:39 | EKG Report ---
Test Performed on : 01/28/2020 1:29:10 PM Test Reason : CP Blood Pressure : / mmHG Vent. Rate : 085 BPM Atrial Rate : 085 BPM P-R Int : 188 ms QRS Dur : 126 ms QT Int : 396 ms P-R-T Axes : 036 008 -18 degrees QTc Int : 471 ms Sinus rhythm. with premature supraventricular complexes. and with occasional premature ventricular co mplexes. Right bundle branch block Cannot rule out Inferior infarct , age undetermined Anterior infarct , age undetermined T wave abnormality, consider lateral ischemia Abnormal ECG When compared with ECG of 14-JAN-2020 19:33, (Unconfirmed) Sinus rhythm. has replaced Atrial fibrillation. Minimal criteria for Inferior infarct are now present Unconfirmed Result
[2020-01-28 13:40] LABS: URINE SOURCE CLEAN CATCH
[2020-01-28 13:40] LABS: MODALITY VENTIMASK
[2020-01-28 13:45] LABS: BILIRUBIN URINE NEGATIVE (NEGATIVE); BLOOD URINE NEGATIVE (NEGATIVE); COLOR YELLOW; GLUCOSE URINE NEGATIVE (NEGATIVE); KETONE URINE NEGATIVE (NEGATIVE); LEUKOCYTES URINE NEGATIVE (NEGATIVE); NITRITE URINE NEGATIVE (NEGATIVE); PROTEIN URINE NEGATIVE (NEGATIVE); SP GRAVITY URINE 1.016; TURBIDITY URINE CLEAR (CLEAR); UROBILINOGEN URINE NORMAL (NORMAL)
[2020-01-28 13:46] LABS: UR EPITHELIAL CELLS <10 /HPF (<10); URINE BACTERIA NEGATIVE /HPF; URINE RBC <10 /HPF (<10); URINE WBC <10 /HPF (<10)
--- NOTE | 2020-01-28 13:48 | Diag Imaging Result Doc PS360 ---
CHEST-PORTABLE - 01/28/2020 INDICATION: cough COMPARISON: 01/14/2020 FINDINGS: Stable cardiomegaly and pulmonary vascular congestion. There is no significant change in the hazy increased markings in the lung bases bilaterally. This is nonspecific but most suggestive of pulmonary edema or perhaps some fibrosis. No significant pleural effusion. IMPRESSION: No change from prior. Electronically signed by Elia Domínguez 01/28/2020 1:45 PM
[2020-01-28 13:49] LABS: BASO# 0.13 X1000 (0.0-0.2); BASO% 1.1 % (0.0-0.8); EOS# 0.05 X1000 (0.0-0.7); EOS% 0.4 % (0.0-10.0); HEMATOCRIT 26.3 % (42.0-52.0); HEMOGLOBIN 7.6 g/dL (14.0-18.0); IMM GRAN# 0.12 X1000 (0.0-0.04); LYMPH# 0.91 X1000 (1.2-3.4); LYMPH% 7.7 % (20.5-51.1); MCH 18.7 PG (27-31); MCHC 28.9 g/dL (33-37); MCV 64.6 FL (81-99); MONO# 0.92 X1000 (0.11-0.59); MONO% 7.7 % (1.7-9.3); MPV 8.8 FL (7.4-10.4); NEUT# 9.75 X1000 (1.4-6.5); NEUT% 82.1 % (42.2-75.2); PLT 406 X1000 (130-400); RBC 4.07 XMIL (4.7-6.1); RDW 24.3 % (11.5-14.5); WBC 11.88 X1000 (4.8-10.8)
[2020-01-28 14:05] LABS: LYMPHS 5 % (21-51); MONO 3 % (1-9); SEGS 92 % (42-75)
[2020-01-28 14:06] LABS: ANISOCYTOSIS 2+; HYPOCHROM 2+; MICROCYTOSIS 2+
[2020-01-28 14:09] LABS: INR 1.22; PROTIME 15.6 Seconds (11.0-16.0)
[2020-01-28 14:10] LABS: PTT 49.8 Seconds (22.3-41.8)
[2020-01-28 14:26] LABS: ALB/GLOB RATIO 1.9; ALBUMIN 3.7 g/dL (3.5-5.0); CREATININE 1.9 mg/dL (0.7-1.2); POTASSIUM 3.6 mmol/L (3.5-5.1); TOTAL BILIRUBIN 0.37 mg/dL (0.20-1.00); TOTAL PROTEIN 5.6 g/dL (6.3-8.3)
[2020-01-28] MEDS ORDERED: LASIX IV ONE (15:23)
[2020-01-28] MEDS ORDERED: ZOSYN 3.375 GM in NS 50 ML IV ONE (15:23)
--- NOTE | 2020-01-28 15:27 | PROVIDER DOCUMENTATION ---
This chart was entered by Brenda Og Scribe, acting as scribe for Hao Archer CRNP. HPI-Respiratory General - General Chief Complaint: Shortness of Breath Stated Complaint: PNEUMONIA Time Seen by Provider: 01/28/20 12:33 Source: RN/MD Allergies/Adverse Reactions: Patient Allergies Allergy/AdvReac Type Severity Reaction Status Date / Time oxycodone [From Percocet] AdvReac DIZZINESS Verified 01/28/20 14:08 Home Medications: Home Medication List Medication Instructions Recorded Confirmed Last Taken Type Losartan/Hydrochlorothiazide 1 each PO DAILY 10/27/13 01/28/20 01/28/20 History [Hyzaar 100/25 Tablet] Metformin [Glucophage] 500 mg PO BID CC 10/27/13 01/28/20 01/28/20 History Potassium Chloride [Klor-Con M20] 20 meq PO TID 10/27/13 01/28/20 01/28/20 History Pravastatin Sodium [Pravachol] 40 mg PO QHS 10/27/13 01/28/20 01/27/20 History Aspirin 81 mg PO DAILY 08/08/17 01/28/20 01/28/20 History Omeprazole 40 mg PO QHS 08/08/17 01/28/20 12/04/17 08:00 History Budesonide/Formoterol Inhaler 2 puff INH RTBID 08/15/17 01/28/20 01/28/20 History [Symbicort 160/4.5 Microgm Inhaler] Amlodipine [Norvasc] 10 mg PO DAILY 12/04/17 01/28/20 01/28/20 History Ferrous Sulfate 325 mg PO DAILY 30 Days #30 tab 01/17/20 01/28/20 01/28/20 Rx Amiodarone HCl 1 tab PO BID 01/28/20 01/28/20 01/28/20 History Apixaban [Eliquis] 1 tab PO BID 01/28/20 01/28/20 01/28/20 History Duloxetine HCl 1 cap PO BID 01/28/20 01/28/20 01/28/20 History Furosemide 1 tab PO DAILY 01/28/20 01/28/20 01/28/20 History Ipratropium/Albuterol Sulfate 1 dose INH PRN PRN 01/28/20 01/28/20 Unknown History [Iprat-Albut 0.5-3(2.5) mg/3 ml] Metoprolol Succinate E.r. [Toprol 1 tab PO QHS 01/28/20 01/28/20 01/27/20 History Xl] Metoprolol Succinate E.r. [Toprol 2 tab PO QAM 01/28/20 01/28/20 01/28/20 History Xl] Tamsulosin [Flomax] 1 cap PO DAILY 01/28/20 01/28/20 01/28/20 History Umeclidinium Blevins [Incruse 1 puff INH DAILY 01/28/20 01/28/20 01/28/20 History Ellipta] - History of Present Illness-Resp Nature of Presenting Problem: 74 yowm c/o increased dyspnea w/ increased sob, productive cough since d/c from hospital on 01-17-20 but becoming worse. pt was in hospital for sepsis, hypoxia, acute pulmonary edema, and L lower lobe PNU. pt increased home o2 form 2L to 4L and is staying at 90-91%. pt still smoked 3 cigarettes/day. hx afib w/rvr and dm. Onset/Duration: reports: other (1.5 wks ago becoming worse) Timing: reports: still present Cough Quality/Degree: reports: productive cough Episode Frequency: frequent episodes Current Respiratory Medication Therapy: Initiated other (home o2) Associated Symptoms: reports: cough, shortness of breath Similar Symptoms Previously?: Yes Recently seen or treated by another doctor?: Yes Review of Systems - Adult - REVIEW OF SYSTEMS - ADULT Constitutional: reports: no symptoms reported. denies: chills, fever, fatique Eyes: reports: no symptoms reported Ears, Nose, Mouth & Throat: reports: no symptoms reported Cardiovascular: reports: no symptoms reported Respiratory: reports: see HPI, cough, dyspnea on exertion, excessive sputum production, shortness of breath. denies: hemoptysis, pleurisy Gastrointestinal: reports: no symptoms reported Genitourinary: reports: no symptoms reported Musculoskeletal: reports: no symptoms reported Integumentary: reports: no symptoms reported Neurological: reports: no symptoms reported Psychiatric: reports: no symptoms reported Endocrine: reports: no symptoms reported Hematologic/Lymphatic: reports: no symptoms reported Allergic/Immunologic: reports: no symptoms reported All Other Systems: Reviewed and Negative Past History - Adult - PAST MEDICAL HISTORY-ADULT Review of Records: reports: Nursing Assessment Review, Medications Reviewed, Social history reviewed & non-contributory. Major Childhood Illnesses: reports: denies history Cardiovascular: reports: A-Fib, HTN Respiratory: reports: COPD Gastrointestinal: reports: GERD Obstetrical/Gynecological: reports: denies history Genitourinary: reports: denies history Musculoskeletal: reports: denies history Neurological: reports: denies history Psychiatric: reports: denies history Endocrine/Immune: reports: Diabetes Other Conditions: reports: denies history Additional History: foot surgery with osteomylatis - PRIOR SURGERIES/PROCEDURES Surgical/Procedure History: reports: hernia repair, orthopedic (extremity), other - IMMUNIZATION STATUS Childhood Immunizations: See Nurse Assessment Flu Vaccine: See Nurse Assessment - FAMILY HISTORY Family History: reviewed, not pertinent - SOCIAL HISTORY Smoking: cigarettes, less than 1 pack/day Provider spent 3-5 mins advising pt. on dangers of tobacco.: Discussed manners to quit use, and f/u contacts for add'l counseling. Substance Use: alcohol Alcohol Use Frequency: occasionally Physical Exam-General - PHYSICAL EXAM-ADULT Initial Vital Signs Reviewed: Yes - CONSTITUTIONAL General Appearance: alert. negative: slow to respond, obtunded, combative - EYES Eyes: PERRL/EOMI - HEAD, EARS, NOSE, MOUTH & THROAT HENMT: normocephalic/atraumatic, moist mucous membranes - NECK Neck: non-tender, full range of motion, supple, normal inspection - RESPIRATORY Respiratory: chest non-tender, no pleuratic chest pain, no respiratory distress, no accessory muscle use, decreased breath sounds (significant diminished breath sounds on rt side), crackles (left base), rhonchi (left base). negative: lungs clear, normal breath sounds, rales, wheezing - CARDIOVASCULAR Cardiovascular: normal peripheral pulses, regular rate, rhythm. negative: no edema - GASTROINTESTINAL (ABDOMEN) Abdominal Exam: normal bowel sounds, non tender, soft - MUSCULOSKELETAL Back Exam: normal inspection Extremity: normal range of motion, normal capillary refill, pelvis stable, calf tenderness (L side on palp moderate, rt side on palp mild), swelling (+4 pitting genoveva w/weeping RLE, +2 pitting edema LLE.). 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-XII nml as tested, grossly normal, no motor/sensory deficits - PSYCHIATRIC Psych/Mental Status: normal mood/affect, normal thought content, normal thought process, oriented x 3 - HEART Score HEART Score: History: Slightly Suspicious HEART Score: ECG: Normal HEART Score: Age: > or = 65 Years HEART Score: Risk Factors for Atherosclerotic Disease: > or = 3 Risk Factors or History of Atherosclerotic Disease HEART Score: Troponin: < or = Normal Limit Total HEART Score:: 4 Progress - PLAN OF CARE/RESULTS Progress/Plan/Lab Results: Vital Signs - 8 hr 01/28/20 13:35 01/28/20 13:50 01/28/20 15:10 Temperature 98.8 F Pulse Rate 96 H 80 87 Respiratory Rate 25 H 26 H 23 Blood Pressure 150/74 118/84 123/66 O2 Sat by Pulse Oximetry 86 L 98 95 Laboratory Results - last 24 hr 01/28/20 01/28/20 01/28/20 13:01 13:01 13:01 WBC RBC Hgb Hct MCV MCH MCHC RDW Std Deviation Plt Count MPV Immature Gran % (Auto) Neut % (Auto) Lymph % (Auto) [place] % (Auto) Eos % (Auto) Baso % (Auto) Immature Gran # (Auto) Neut # (Auto) Lymph # (Auto) [place] # (Auto) Eos # (Auto) Baso # (Auto) Segmented Neutrophils Lymphocytes Monocytes Hypochromia Anisocytosis Microcytosis PT INR PTT (Actin FS) D-Dimer, Quantitative Specimen Type Sample Site pH pCO2 pO2 HCO3 Base Excess Oxyhemoglobin ABG O2 Sat (Calculated) ABG O2 Saturation ABG Carboxyhemoglobin ABG Methemoglobin Jim Test A-a O2 Difference Total Hemoglobin Lactate Liter Flow Blood Gas Modality FiO2 % Sodium 139 Potassium 3.6 Chloride 99 Carbon Dioxide 25 Anion Gap 15 BUN 36 H Creatinine 1.9 H Estimated GFR/1.73 m2 35 BUN/Creatinine Ratio 19 Glucose 103 Calculated Osmolality 286 Calcium 9.0 Total Bilirubin 0.37 AST 15 ALT 14 Alkaline Phosphatase 68 Creatine Kinase Troponin T High Sens Ltd-B-Kxphnxxtbou Pept 3971 H Total Protein 5.6 L Albumin 3.7 Globulin 1.9 Albumin/Globulin Ratio 1.9 Plasma Lactate 1.7 Urine Source Urine Color Urine Turbidity Urine pH Ur Specific [place] Urine Protein Ur Glucose (Stick) Ur Ketones (Stick) Urine Blood Urine Nitrite Urine Bilirubin Urobilinogen Dipstick Urine Leukocytes Urine WBC (Auto) Urine RBC (Auto) U Epithel Cells (Auto) Urine Bacteria (Auto) 01/28/20 01/28/20 01/28/20 13:01 13:01 13:01 WBC 11.88 H RBC 4.07 L Hgb 7.6 L Hct 26.3 L MCV 64.6 L MCH 18.7 L MCHC 28.9 L RDW Std Deviation 24.3 H Plt Count 406 H MPV 8.8 Immature Gran % (Auto) 1.0 H Neut % (Auto) 82.1 H Lymph % (Auto) 7.7 L [place] % (Auto) 7.7 Eos % (Auto) 0.4 Baso % (Auto) 1.1 H Immature Gran # (Auto) 0.12 H Neut # (Auto) 9.75 H Lymph # (Auto) 0.91 L [place] # (Auto) 0.92 H Eos # (Auto) 0.05 Baso # (Auto) 0.13 Segmented Neutrophils 92 H Lymphocytes 5 L Monocytes 3 Hypochromia 2+ Anisocytosis 2+ Microcytosis 2+ PT INR PTT (Actin FS) D-Dimer, Quantitative 0.43 Specimen Type Sample Site pH pCO2 pO2 HCO3 Base Excess Oxyhemoglobin ABG O2 Sat (Calculated) ABG O2 Saturation ABG Carboxyhemoglobin ABG Methemoglobin Jim Test A-a O2 Difference Total Hemoglobin Lactate Liter Flow Blood Gas Modality FiO2 % Sodium Potassium Chloride Carbon Dioxide Anion Gap BUN Creatinine Estimated GFR/1.73 m2 BUN/Creatinine Ratio Glucose Calculated Osmolality Calcium Total Bilirubin AST ALT Alkaline Phosphatase Creatine Kinase Troponin T High Sens 39 H Gqk-C-Lpwzxisqozl Pept Total Protein Albumin Globulin Albumin/Globulin Ratio Plasma Lactate Urine Source Urine Color Urine Turbidity Urine pH Ur Specific [place] Urine Protein Ur Glucose (Stick) Ur Ketones (Stick) Urine Blood Urine Nitrite Urine Bilirubin Urobilinogen Dipstick Urine Leukocytes Urine WBC (Auto) Urine RBC (Auto) U Epithel Cells (Auto) Urine Bacteria (Auto) 01/28/20 01/28/20 01/28/20 13:01 13:09 13:10 WBC RBC Hgb Hct MCV MCH MCHC RDW Std Deviation Plt Count MPV Immature Gran % (Auto) Neut % (Auto) Lymph % (Auto) [place] % (Auto) Eos % (Auto) Baso % (Auto) Immature Gran # (Auto) Neut # (Auto) Lymph # (Auto) [place] # (Auto) Eos # (Auto) Baso # (Auto) Segmented Neutrophils Lymphocytes Monocytes Hypochromia Anisocytosis Microcytosis PT 15.6 INR 1.22 PTT (Actin FS) 49.8 H D-Dimer, Quantitative Specimen Type ARTERIAL Sample Site R RADIAL pH 7.43 pCO2 38 pO2 70 HCO3 25.6 Base Excess 0.9 Oxyhemoglobin 91.4 L ABG O2 Sat (Calculated) 10.4 L ABG O2 Saturation 97.5 ABG Carboxyhemoglobin 6.10 H* ABG Methemoglobin 0.2 Jim Test YES A-a O2 Difference 239.0 Total Hemoglobin 8.0 L Lactate 1.50 Liter Flow 15.0 Blood Gas Modality VENTIMASK FiO2 % 50.0 Sodium Potassium Chloride Carbon Dioxide Anion Gap BUN Creatinine Estimated GFR/1.73 m2 BUN/Creatinine Ratio Glucose Calculated Osmolality Calcium Total Bilirubin AST ALT Alkaline Phosphatase Creatine Kinase 87 Troponin T High Sens Gpi-E-Dniaktiecua Pept Total Protein Albumin Globulin Albumin/Globulin Ratio Plasma Lactate Urine Source Urine Color Urine Turbidity Urine pH Ur Specific [place] Urine Protein Ur Glucose (Stick) Ur Ketones (Stick) Urine Blood Urine Nitrite Urine Bilirubin Urobilinogen Dipstick Urine Leukocytes Urine WBC (Auto) Urine RBC (Auto) U Epithel Cells (Auto) Urine Bacteria (Auto) 01/28/20 13:18 WBC RBC Hgb Hct MCV MCH MCHC RDW Std Deviation Plt Count MPV Immature Gran % (Auto) Neut % (Auto) Lymph % (Auto) [place] % (Auto) Eos % (Auto) Baso % (Auto) Immature Gran # (Auto) Neut # (Auto) Lymph # (Auto) [place] # (Auto) Eos # (Auto) Baso # (Auto) Segmented Neutrophils Lymphocytes Monocytes Hypochromia Anisocytosis Microcytosis PT INR PTT (Actin FS) D-Dimer, Quantitative Specimen Type Sample Site pH pCO2 pO2 HCO3 Base Excess Oxyhemoglobin ABG O2 Sat (Calculated) ABG O2 Saturation ABG Carboxyhemoglobin ABG Methemoglobin Jim Test A-a O2 Difference Total Hemoglobin Lactate Liter Flow Blood Gas Modality FiO2 % Sodium Potassium Chloride Carbon Dioxide Anion Gap BUN Creatinine Estimated GFR/1.73 m2 BUN/Creatinine Ratio Glucose Calculated Osmolality Calcium Total Bilirubin AST ALT Alkaline Phosphatase Creatine Kinase Troponin T High Sens Kak-F-Slyigvwvhml Pept Total Protein Albumin Globulin Albumin/Globulin Ratio Plasma Lactate Urine Source CLEAN CATCH Urine Color YELLOW Urine Turbidity CLEAR Urine pH 5.0 Ur Specific [place] 1.016 Urine Protein NEGATIVE Ur Glucose (Stick) NEGATIVE Ur Ketones (Stick) NEGATIVE Urine Blood NEGATIVE Urine Nitrite NEGATIVE Urine Bilirubin NEGATIVE Urobilinogen Dipstick NORMAL Urine Leukocytes NEGATIVE Urine WBC (Auto) <10 Urine RBC (Auto) <10 U Epithel Cells (Auto) <10 Urine Bacteria (Auto) NEGATIVE Orders Category Date Time Status Cardiac Monitoring NOW Care 01/28/20 13:44 Active IV Insertion NOW Care 01/28/20 13:44 Active NEWS Score >or=5:Order NEWS Bundle S.O. NOW Care 01/28/20 13:40 Active Notify Provider of NEWS Score NOW Care 01/28/20 13:44 Active Saline Loc NOW Care 01/28/20 12:50 Active CHEST-PORTABLE [RAD] Stat Exams 01/28/20 12:51 Completed ABG [RESP] Routine Lab 01/28/20 13:10 Completed BLOOD CULTURE [BLDCUL] Stat Lab 01/28/20 13:09 Results CBC WITH DIFF [HEME] Stat Lab 01/28/20 13:01 Completed CK PROFILE [SP CHEM] Stat Lab 01/28/20 13:09 Completed COMPREHENSIVE METABOLIC PANEL [CHEM] Stat Lab 01/28/20 13:01 Completed D-DIMER [COAG] Stat Lab 01/28/20 13:01 Completed LACTATE, PLASMA [CHEM] Lab 01/28/20 16:01 Uncollected LACTATE, PLASMA [CHEM] Lab 01/28/20 19:01 Uncollected LACTATE, PLASMA [CHEM] Stat Lab 01/28/20 13:01 Completed PRO B-NATRIURETIC PEPTIDE Stat Lab 01/28/20 13:01 Completed PROTIME WITH INR [COAG] Stat Lab 01/28/20 13:01 Completed PTT [COAG] Stat Lab 01/28/20 13:01 Completed TROPONIN T HIGH SENSITIVITY Stat Lab 01/28/20 13:01 Completed URINALYSIS W/POSS RFLX CULT [URINALYSIS] Stat Lab 01/28/20 13:18 Completed Furosemide [Lasix] Med 01/28/20 15:23 Once 40 mg IV NOW ONE Piperacillin/Tazobactam [Zosyn] 3.375 gm Med 01/28/20 15:23 Active 0.9% Sodium Chloride Inj [Ns] 50 ml IV NOW O2 Per Protocol Stat Oth 01/28/20 13:44 Active Pulse Oximetry Stat Oth 01/28/20 12:50 Active EKG [EKG] Stat Ther 01/28/20 12:53 Draft Result Diagrams: 01/28/20 13:01 01/28/20 13:01 - EKG 1 Time of EKG reading by physician:: 13:29 EKG Read and Signed by:: Andre Smith EKG Interpretation (*Must complete 3 of following elements*): Abnormal Rate: 85 Rhythm: NSR w/ freq PACs [place]: normal QRS: RBB [place] Interval: prolonged ST Wave: normal - XRAY 1 XRAY Study: Chest Impression: See EMR Report ( CHEST-PORTABLE - 01/28/2020 INDICATION: cough COMPARISON: 01/14/2020 FINDINGS: Stable cardiomegaly and pulmonary vascular congestion. There is no significant change in the hazy increased markings in the lung bases bilaterally. This is nonspecific but most suggestive of pulmonary edema or perhaps some fibrosis. No significant pleural effusion. IMPRESSION: No change from prior. Electronically signed by Elia Domínguez 01/28/2020 1:45 PM 01/28/20 1345) Comparison with other Films: no changes - CONSULTS/PCP/HOSPITALIST Notification #1 *Consult/PCP/Hospitalist*: Salome for Dr. Hill Time Discussed: 15:19 Consult Disposition: Admit Departure - Departure Date of Disposition Decision: 01/28/20 Time of Disposition Decision: 15:24 DIAGNOSIS: GISELL (acute kidney injury), SOB (shortness of breath), Cellulitis of both lower extremities, Elevated brain natriuretic peptide (BNP) level Disposition: ADMITTED INPATIENT 09 Certified Medical Emergency: Emergent Condition: Critical Referrals and Follow-Ups: Nidhi Cooper MD [Primary Care Provider] - - Critical Care Note This patient required my direct & personal management of CC.: No Attestation - Physician/ HECTOR Attestation Patient care was provided by Advanced Practice Provider:: Yes Advanced Practice Provider:: Hao Archer Advanced Practice Provider documentation review:: The Mid-level provider documentation, treatment plan and medical decision making was reviewed by the physician who agrees with all treatment and medical decision making by the MLP. The physician spent face to face time with patient:: No Advanced Practice Provider documentation review:: Supervising physician onsite and consulted in the evaluation and care of this patient. The physician did not have a face to face encounter with the patient. This chart was documented by the indicated scribe, (Brenda Og Scribe) and accurately reflects the services I performed and decisions made by Suzi doshi Reagan R., CRNP, as attested by the provider's signature.
--- NOTE | 2020-01-28 16:58 | HISTORY AND PHYSICAL ---
PRIMARY CARE PHYSICIAN: Dr. Nidhi Cooper. CHIEF COMPLAINT: Increased shortness of breath since discharge from the hospital on 01/17/2020. HISTORY OF PRESENTING ILLNESS: This is a 74-year-old male who presents to [facility] with complaints of increased shortness of breath and a productive cough that has worsened since he was discharged on 01/17/2020. He had been in the hospital for bilateral lower lobe pneumonia, acute respiratory failure, an acute exacerbation of COPD on home O2. When he arrived to the emergency room today, his O2 saturation was 86% on 4 L via nasal cannula. He was changed to a Venturi mask with a flow rate of 15, came up to 95% to 98%. Laboratory data showed a white blood cell count of 11.88. ProBNP was 3971. Urinalysis was negative. Chest x-ray showed no change from prior with stable cardiomegaly and pulmonary vascular congestion. He has 4+ weeping pitting edema to his right lower extremity, 2+ edema to his left lower extremity. When he was in the hospital on 01/13, he had an echocardiogram that showed an ejection fraction 65%. He had on 01/14/2020 also had right lower extremity venous Doppler that showed no DVT or SVT of either lower extremity, but he will be admitted for further evaluation and treatment. PAST MEDICAL HISTORY: Atrial fibrillation, diabetes type 2, hypertension, coronary artery disease, COPD, GERD, CKD, JAMAL, and microcytic anemia. PAST SURGICAL HISTORY: Hernia repair. FAMILY HISTORY: Reviewed and noncontributory. SOCIAL HISTORY: He smokes three cigarettes a day. Denies any alcohol or illicit drug use. ALLERGIES: Oxycodone. HOME MEDICATIONS: Takes amiodarone 200 mg p.o. b.i.d., Norvasc 10 mg p.o. daily, Eliquis 5 mg p.o. b.i.d., aspirin 81 mg p.o. daily, Symbicort 160/4.5 two puff inhalation b.i.d., duloxetine 60 mg p.o. b.i.d., ferrous sulfate 325 mg p.o. daily, Lasix 20 mg p.o. daily will be held, ipratropium/albuterol sulfate one dose inhalation p.r.n., Hyzaar 100/25 one p.o. daily, metformin 500 mg p.o. b.i.d., metoprolol 50 mg p.o. at bedtime and two tablets p.o. q.a.m., omeprazole 40 mg p.o. at bedtime, Klor-Con 20 mEq p.o. t.i.d., Pravachol 40 mg p.o. at bedtime, tamsulosin 0.4 mg p.o. daily and Incruse Ellipta one puff inhalation daily. LABORATORY DATA: Showed a white blood cell count of 11.88, hemoglobin 7.6, hematocrit 26.3, platelets 406,000. PT and INR of 15.6 and 1.22 with a D-dimer of 0.43. ABG with a pH of 7.43, pCO2 38, PO2 70, bicarb 25.6, this was on a 50% Venti mask. Sodium 139, potassium 3.6, chloride 99, CO2 25, BUN of 36, creatinine 1.9, glucose 103. ProBNP of 3971. Plasma lactate of 1.7. Cardiac enzyme was negative. Urinalysis was negative. IMAGING: Chest x-ray showed no change from prior. EKG showed sinus rhythm with premature supraventricular complexes and with occasional premature ventricular complexes at 85. REVIEW OF SYSTEMS: He denied any fever, chills, blurred vision, dizziness, or chest pain. He has had a nonproductive cough, shortness of breath, bilateral lower extremity edema. Denied any abdominal pain, constipation, diarrhea, burning or hurting with urination. PHYSICAL EXAMINATION: VITAL SIGNS: On arrival he had a temperature of 98.8 degrees, pulse 96, respirations 25, blood pressure 150/74, saturating 86% on 4 L via nasal cannula up to 98% on 50% venturi mask with oxygen flow rate of 15. GENERAL: This is a 74-year-old male who is sitting up in the bed. Answers questions appropriately. HEENT: Normocephalic, atraumatic. Normal ENT inspection. Oropharynx and nares are clear. EYES: Pupils are equal, round, reactive to light and accommodation. Extraocular movements are intact. NECK: Normal inspection. Normal range of motion. LUNGS: With decreased breath sounds on the right. Crackles in the left base along with some rhonchi. O2 via Venturi mask currently in use. Equal lung expansion. Chest wall movement noted at this time. HEART: Regular rate and rhythm. No murmurs, rubs, or gallops. ABDOMEN: Soft, nontender, nondistended. Bowel sounds are present x4 quadrants. MUSCULOSKELETAL: He has 3/5 strength x4 extremities. He has 4+ pitting edema with weeping to the right lower extremity; left with 2+ pitting edema. NEUROLOGICAL: The cranial nerves 2-12 appear grossly intact. ASSESSMENT: 1. Possible new onset congestive heart failure. 2. Acute respiratory failure. 3. Diabetes type 2. 4. Tobacco abuse. PLAN: He will be admitted and will place him in the PVC unit, placed on telemetry, O2 per protocol, currently on a 50% venturi mask. Lasix 40 mg intravenously every 12 hours. Continue home medications as previously identified. We will not repeat his echocardiogram as he just had one done a couple weeks ago that showed an ejection fraction of 65%. Pattern blood sugars with sliding scale insulin with diabetic diet and further orders after seen by attending. Dictated by DWIGHT Elena for Odell Riggs MD Addendum: Patient seen and examined by myself. Agree with DWIGHT note. It reflects my assessment and plan. Patient is being admitted to hospital for acute respiratory failure. He has a normal echocardiogram done few days ago but his renal function is getting worse. Will check proteinuria and will consult Nephrology. Will start Lasix 40 mg IV q12 hrs. cc: DWIGHT Elena MD Marlin D. Gill, MD GR[facility] SQUARE HOSPITALIsaac
[2020-01-28] MEDS ORDERED: DUONEB (A & A) INH PRN (17:28)
[2020-01-28] MEDS ORDERED: TYLENOL PO PRN (17:28)
[2020-01-28] MEDS ORDERED: ZOFRAN IV PRN (17:28)
[2020-01-28] MEDS: LASIX IV SCH (17:39)
[2020-01-28] MEDS: KLOR-CON PO SCH (17:39)
[2020-01-28] MEDS: PRILOSEC PO SCH (19:59)
[2020-01-28] MEDS: PRAVACHOL PO SCH (19:59)
[2020-01-28] MEDS: TOPROL XL PO SCH (19:59)
[2020-01-28] MEDS: CYMBALTA PO SCH (19:59)
[2020-01-28] MEDS: CORDARONE PO SCH (19:59)
[2020-01-28] MEDS: ELIQUIS PO SCH (20:00)
[2020-01-28] MEDS: SYMBICORT 160/4.5 MICROGM INHALER INH SCH (20:25)
--- NOTE | 2020-01-28 21:48 | EKG Report ---
Test Performed on : 01/28/2020 9:20:03 PM Test Reason : elevated Heart rate Blood Pressure : / mmHG Vent. Rate : 151 BPM Atrial Rate : 151 BPM P-R Int : 156 ms QRS Dur : 150 ms QT Int : 334 ms P-R-T Axes : -10 017 -05 degrees QTc Int : 529 ms Critical Test Result: High HR , Arrhythmia Sinus tachycardia. with frequent premature ventricular complexes. Right bundle branch block Abnormal ECG When compared with ECG of 28-JAN-2020 13:29, (Unconfirmed) premature supraventricular complexes. are no longer present Vent. rate has increased BY 66 BPM Minimal criteria for Inferior infarct are no longer present Confirmed by David SCHERER, Jim Reyes ([id number]) on 01/29/2020 5:30:58 PM
[2020-01-28] MEDS ORDERED: CARDIZEM 100 MG/NS 100 MG/100 ML IVPB IV SCH (23:45)
[2020-01-29] MEDS: LASIX IV SCH ×2 (05:31→16:32)
[2020-01-29 06:00] LABS: BASO# 0.03 X1000 (0.0-0.2); BASO% 0.3 % (0.0-0.8); HEMATOCRIT 24.5 % (42.0-52.0); LYMPH# 0.87 X1000 (1.2-3.4); LYMPH% 8.4 % (20.5-51.1); MCH 18.7 PG (27-31); MCHC 28.6 g/dL (33-37); MCV 65.5 FL (81-99); MONO% 10.6 % (1.7-9.3); MPV 8.4 FL (7.4-10.4); PLT 421 X1000 (130-400); RBC 3.74 XMIL (4.7-6.1); RDW 24.2 % (11.5-14.5); WBC 10.34 X1000 (4.8-10.8)
[2020-01-29 06:18] LABS: CALCIUM 8.7 mg/dL (8.8-10.2); LYMPHS 8 % (21-51); MONO 8 % (1-9); POTASSIUM 3.3 mmol/L (3.5-5.1); SEGS 84 % (42-75)
[2020-01-29] MEDS ORDERED: NORVASC PO SCH (09:00)
[2020-01-29] MEDS ORDERED: HYZAAR 50/12.5 MG PO SCH (09:00)
[2020-01-29] MEDS: INCRUSE ELLIPTA INH SCH (09:04)
[2020-01-29] MEDS: SYMBICORT 160/4.5 MICROGM INHALER INH SCH ×2 (09:04→19:52)
[2020-01-29] MEDS: ELIQUIS PO SCH ×2 (09:18→20:57)
[2020-01-29] MEDS: FLOMAX PO SCH (09:18)
[2020-01-29] MEDS: FERROUS SULFATE PO SCH (09:18)
[2020-01-29] MEDS: KLOR-CON PO SCH ×3 (09:19→20:56)
[2020-01-29] MEDS: TOPROL XL PO SCH ×2 (09:19→20:56)
[2020-01-29] MEDS: CORDARONE PO SCH ×2 (09:19→20:56)
[2020-01-29] MEDS: CYMBALTA PO SCH ×2 (09:19→20:56)
[2020-01-29] MEDS: ASPIRIN PO SCH (09:19)
[2020-01-29] MEDS ORDERED: NS 1,000 ML IV SCH (10:00)
--- NOTE | 2020-01-29 10:24 | NEPHROLOGY CONSULTATION ---
DATE: 01/29/2020 REASON FOR CONSULTATION: Chronic kidney disease. ATTENDING PHYSICIAN: Dr. Hill. HISTORY OF PRESENT ILLNESS: Mr. Palacios is a 74-year-old man with COPD, coronary artery disease, hypertension, diabetes, atrial fibrillation. He was recently hospitalized for pneumonia and was treated with antibiotics and sent home with home oxygen. He lives alone in the [place] area. Continues to smoke. After arriving home, he was there for only a short period of time and had recrudescence of his symptoms with cough, worsening shortness of breath, prompting him to return to the emergency room. He was discharged on the and returned to the hospital on the day. He has not noticed any changes in his kidney function. He states as far he is aware, he has never had kidney disease before. No voiding symptoms, no change in the character or color of his urine. No nausea, vomiting diarrhea. No chills, fever, sweats, night sweats, headaches etc. Appetite is intact. He states he did have some swelling during his last hospitalization. This is a uncommon symptom. None at this time. PAST MEDICAL HISTORY: As above. HOME MEDICATIONS: Include losartan, hydrochlorothiazide, pravastatin, potassium, metformin, omeprazole, aspirin, budesonide, amlodipine, ferrous sulfate, duloxetine, furosemide, ipratropium, albuterol, Incruse, amiodarone, apixaban, metoprolol, tamsulosin. ALLERGIES: Oxycodone. SOCIAL HISTORY: As above. Unmarried. FAMILY HISTORY: Noncontributory. REVIEW OF SYSTEMS: Noncontributory otherwise. PHYSICAL EXAMINATION: Vital Signs: Blood pressure 126/60, heart rate 64, respirations 17, afebrile. General: He is a chronically ill, elderly man, sitting up, no acute distress. Skin: Warm and dry with several ecchymoses. Conjunctivae are pink. Pupils are equal. Corneal arcus is present. Oropharynx is clear, dry, edentulous. Neck: Supple. Trachea is midline. Neck veins are not visible in the erect position. Heart: PMI is not palpable. Irregular but rate controlled. No gallops or murmurs. Lungs: Have equal excursion, equal breath sounds. Increased AP diameter. Decreased breath sounds overall care. No crackles or wheezes. Abdomen: Soft, nontender. Bowel sounds present. Extremities: No edema, clubbing or cyanosis. Neurologic: Nonfocal. IMPRESSION AND PLAN: Acute kidney injury. His creatinine was 1.5 on presentation on the 13 of January. He received IV diuretics during that time. I expect that his elevated BUN and creatinine are related to prerenal factors in the context of recent acute illness. Certainly he is at some risk for ischemic acute tubular necrosis. Electrolytes and acid-base are in target. We will perform imaging and urine electrolytes. Gentle IV fluids. Observe. cc: Alvin Yip MD
[2020-01-29] MEDS: NICODERM PATCH TD SCH (14:17)
[2020-01-29] MEDS ORDERED: NS 500 ML IV ONE (16:38)
--- NOTE | 2020-01-29 17:16 | Diag Imaging Result Doc PS360 ---
EXAM: CHEST-PORTABLE 01/29/2020 HISTORY: dyspnea TECHNIQUE: AP portable upright at 0448 COMMENT: There is cardiomegaly. There is platelike atelectasis over both lung bases. There may be interstitial pulmonary edema. This has not changed significantly since 01/28/2020. IMPRESSION: Cardiomegaly and bibasilar subsegmental atelectasis and mild pulmonary edema. Electronically signed by Segundo Manning 01/29/2020 5:14 PM
[2020-01-29 18:21] LABS: ALLEN TEST YES; BE 3.7 mmoll (-3.0-3.0); BLOOD TYPE ARTERIAL; HCO3-(ACT) 27.8 mmoll (20.0-26.0); METHB 1.4 % (0.0-1.5); O2(CT) 10.3 mL/dL (15.0-23.0); PCO2(98.6) 48 mmHg (35-45); PO2(98.6) 167 mmHg (60-100); SAMPLE BLOOD; SAO2 98.9 % (95.0-100.0); THB 7.3 g/dL (11.5-17.4); pH(98.6) 7.39 (7.35-7.45)
[2020-01-29 18:22] LABS: MODALITY NRB
--- NOTE | 2020-01-29 18:34 | PROGRESS NOTE ---
DATE: 01/29/2020 SUBJECTIVE: I have seen and examined Mr. Palacios today. Early on, the nurses were concerned that he is having a little bit more difficulty breathing since the fluid was started and also slightly more confused. When I came to evaluate him, he said he was feeling well, but he was on 15 L of Venturi mask. OBJECTIVELY: Current vitals: Blood pressure is 117/48, pulse of 70, respiration is 19, temperature 98.5 degrees. The patient is saturating 91% on Venturi mask. General Exam: Mr. Palacios is a 74-year-old gentleman. He was in bed. He did not seems to be in any cardiopulmonary distress. Mucosa is pink and moist. Anicteric. Acyanotic. Neck: Supple. There is positive mild JVD. Chest: Air entry is bilaterally reduced. There are crackles in the posterior lung gonzalez. Cardiovascular: Regular rate and rhythm with occasional extrasystolic beat. No murmurs. GI: Abdomen is soft. There is an old right flank surgical scar. Extremities: 2+ pedal edema. 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 LABORATORY DATA: WBC is 10.34, hemoglobin is down to 7.0, platelet count of 421,000. Chemistry is also reviewed. Creatinine is 2.0. It was 1.9 this morning. The patient seems to have a baseline of 1.5 in December. IMAGING STUDIES: That have been done including a chest x-ray shows nonspecific congestive pulmonary edema, perhaps some fibrosis. No significant pleural effusion. LABS: The patient's pro B is elevated. ASSESSMENT: 1. Hypoxemic respiratory failure. The patient continues needing supplemental oxygen. He has a he is actually now on 15 L of non-rebreather. We will continue to monitor this closely in the step-down unit. If patient's demands goes any higher, we will transfer him to the intensive care unit. 2. Some fluid overload presumably from diastolic heart failure. The patient is on diuretic therapy. 3. Normocytic anemia due to iron deficiency. Hemoglobin is down to 6.0. We are going to group and crossmatch and transfuse him a unit of packed red blood cells. We will also get some occult blood test to rule out any gastrointestinal blood loss. 4. Renal failure, presumably acute on chronic. Nephrology has been consulted. 5. History of atrial fibrillation currently rate controlled. 6. History of coronary artery disease. cc: Vishnu Puente MD
[2020-01-29 19:58] LABS: UR PROTEIN 3.4 mg/dL
[2020-01-29] MEDS: PRILOSEC PO SCH (20:56)
[2020-01-29] MEDS: PRAVACHOL PO SCH (20:57)
--- NOTE | 2020-01-29 21:32 | Diag Imaging Result Doc PS360 ---
EXAM: US RENAL 2 (RETROPER) COMPLETE HISTORY: decreased renal function TECHNIQUE: Renal ultrasound COMPARISON: None. FINDINGS: The right kidney measures 9.7 x 5.4 x 5.0 cm. The left kidney measures 10.1 x 5.7 x 4.8 cm. Normal renal echotexture and cortical thickness. No stone or hydronephrosis. There are several left upper pole renal cysts. The largest measures 2.9 cm. The urinary bladder is distended and appears normal. IMPRESSION: Normal renal ultrasound. Electronically signed by José Luis Masters 01/29/2020 9:30 PM
[2020-01-29 23:07] LABS: URINE SOURCE VOIDED
[2020-01-29 23:12] LABS: BILIRUBIN URINE NEGATIVE (NEGATIVE); BLOOD URINE NEGATIVE (NEGATIVE); COLOR STRAW; GLUCOSE URINE NEGATIVE (NEGATIVE); KETONE URINE NEGATIVE (NEGATIVE); LEUKOCYTES URINE NEGATIVE (NEGATIVE); NITRITE URINE NEGATIVE (NEGATIVE); PROTEIN URINE NEGATIVE (NEGATIVE); TURBIDITY URINE CLEAR (CLEAR); UR EPITHELIAL CELLS <10 /HPF (<10); URINE BACTERIA NEGATIVE /HPF; URINE RBC <10 /HPF (<10); URINE WBC <10 /HPF (<10); UROBILINOGEN URINE NORMAL (NORMAL)
[2020-01-29 23:35] LABS: UR CREAT RANDOM 27.3 mg/dL (14-26); UR PROT RANDOM < 4.0 mg/dL; UR SODIUM 99 mmoll; UR UREA NITROGEN RANDOM 229 mg/dL
[2020-01-30] MEDS: LASIX IV SCH ×2 (05:43→16:29)
[2020-01-30 06:02] LABS: HEMATOCRIT 27.1 % (42.0-52.0); HEMOGLOBIN 8.2 g/dL (14.0-18.0); MCH 20.6 PG (27-31); MCHC 30.3 g/dL (33-37); MCV 68.1 FL (81-99); MPV 8.4 FL (7.4-10.4); RBC 3.98 XMIL (4.7-6.1); RDW 25.4 % (11.5-14.5); WBC 8.7 X1000 (4.8-10.8)
[2020-01-30 06:25] LABS: ALBUMIN 3.5 g/dL (3.5-5.0); CALCIUM 8.8 mg/dL (8.8-10.2); CREATININE 1.5 mg/dL (0.7-1.2); PHOSPHORUS 4.2 mg/dL (2.7-4.5); POTASSIUM 3.1 mmol/L (3.5-5.1)
[2020-01-30] MEDS: SYMBICORT 160/4.5 MICROGM INHALER INH SCH ×2 (08:16→20:11)
[2020-01-30] MEDS: INCRUSE ELLIPTA INH SCH (08:17)
[2020-01-30] MEDS: CORDARONE PO SCH ×2 (09:13→20:26)
[2020-01-30] MEDS: NICODERM PATCH TD SCH (09:13)
[2020-01-30] MEDS: FERROUS SULFATE PO SCH (09:13)
[2020-01-30] MEDS: KLOR-CON PO SCH ×6 (09:13→20:26)
[2020-01-30] MEDS: ELIQUIS PO SCH ×2 (09:14→20:26)
[2020-01-30] MEDS: ASPIRIN PO SCH (09:14)
[2020-01-30] MEDS: TOPROL XL PO SCH ×2 (09:14→20:27)
[2020-01-30] MEDS: CYMBALTA PO SCH ×2 (09:14→20:26)
[2020-01-30] MEDS: FLOMAX PO SCH (09:14)
--- NOTE | 2020-01-30 12:35 | NEPHROLOGY PROGRESS NOTE ---
DATE: 01/30/2020 SUBJECTIVE: He is sitting up in the chair. He states he feels much better today. He is still requiring non-rebreather however. OBJECTIVE: Vital Signs: Blood pressure 118/63, heart rate 60, respirations 22, afebrile. Intake 1 L. Output 1.5 L. General: No acute distress. Skin: Warm and dry. Neck: Neck veins are not visible in the erect position. Heart: Regular. Lungs: Equal. No crackles or wheezes. Abdomen: Soft, nontender. Bowel sounds are present. Extremities: With 1+ edema. No clubbing or cyanosis. IMPRESSION: Acute kidney injury. FENA greater than 1. Urine output is excellent. Creatinine down to 1.5 today. Electrolytes/acid base in target. He is still receiving furosemide 40 mg twice daily. No changes. We will sign off but if we can be of further assistance, please do not hesitate to call. cc: Alvin Yip MD
--- NOTE | 2020-01-30 13:09 | EKG Report ---
Test Performed on : 01/30/2020 12:56:46 PM Test Reason : arrythmia Blood Pressure : / mmHG Vent. Rate : 118 BPM Atrial Rate : 122 BPM P-R Int : 000 ms QRS Dur : 156 ms QT Int : 346 ms P-R-T Axes : 000 229 051 degrees QTc Int : 484 ms Atrial fibrillation. with rapid ventricular response. Right bundle branch block Abnormal ECG When compared with ECG of 28-JAN-2020 21:20, Atrial fibrillation. has replaced Sinus rhythm. QRS axis shifted left T wave inversion no longer evident in Inferior leads Confirmed by David SCHERER, Jim Reyes ([id number]) on 01/31/2020 11:48:59 AM
--- NOTE | 2020-01-30 13:34 | EKG Report ---
Test Performed on : 01/30/2020 1:13:55 PM Test Reason : Change in HR Blood Pressure : / mmHG Vent. Rate : 058 BPM Atrial Rate : 058 BPM P-R Int : 192 ms QRS Dur : 146 ms QT Int : 462 ms P-R-T Axes : 000 240 088 degrees QTc Int : 453 ms Sinus bradycardia. with premature atrial complexes. Right bundle branch block Abnormal ECG When compared with ECG of 30-JAN-2020 12:56, (Unconfirmed) Sinus rhythm. has replaced Atrial fibrillation. Vent. rate has decreased BY 60 BPM Confirmed by David SCHERER, Jim Reyes ([id number]) on 01/31/2020 11:49:03 AM
--- NOTE | 2020-01-30 13:39 | PROGRESS NOTE ---
DATE: 01/30/2020 SUBJECTIVE: I have seen and examined Mr. Palacios today. Mr. Palacios was sitting at the edge of the bed. He refers to be feeling much better. He was still on a non-rebreather. Respiratory therapy was also at the bedside. We all agreed that he could be transitioned to nasal cannula. Mr. Palacios also refers that his lower extremity swelling is better. OBJECTIVE: Vital signs: Blood pressure was 118/63, pulse of 60, respirations 22, temperature 97.8 degrees. The patient was saturating 98% on a non-rebreather. General: Mr. Palacios is a 74- year-old elderly male. He was sitting at the edge of the bed. He was not in any cardiopulmonary distress. HEENT: Mucosa was pink and moist. Anicteric. Acyanotic. Neck: Supple. There was no JVD. Chest: Air entry was bilaterally reduced. Some faint wet crackles posteriorly. Cardiovascular: Regular rate and rhythm. There were some extra extrasystolic beats. I did not hear any murmur. Abdomen: Soft, nontender. Bowel sounds present. There is an old right flank surgical scar from previous cholecystectomy. Extremities: 1+ pedal edema. 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 LABORATORY DATA: WBC is 8.7, hemoglobin of 8.2, platelet count of 300,000. The patient's MCV is 68.1. Chemistry is also reviewed. Creatinine is down to 1.5, which seems to be the patient's baseline. Potassium of 3.1. He is getting supplements. So far, blood cultures have been 48 hours negative. ASSESSMENT: 1. Acute hypoxemic respiratory failure. Patient continues to be on non-rebreather. I think we can transition him down to Venturi mask or nasal cannula. We will follow up with further recommendations from respiratory therapy. 2. Fluid overload secondary to diastolic heart failure with preserved ejection fraction. Patient continues to be on diuretic therapy. 3. Microcytic anemia due to iron deficiency. The patient is transfused 1 packed red blood cells. Hemoglobin and hematocrit have come up to 8.2 this morning. We are still pending fecal occult blood testing and will continue with iron infusion. 4. Acute kidney injury versus acute on chronic. Nephrology is on board. Patient's creatinine is down to 1.5 and he continues to have adequate urine output. 5. History of atrial fibrillation, currently rate controlled. The patient is on amiodarone and metoprolol, and Eliquis for stroke prophylaxis. 6. History of coronary artery disease, stable, currently asymptomatic. The patient is on statin and metoprolol. Losartan has been withheld because of renal function abnormalities. In general, I think Mr. Palacios is doing well. We are going to continue with the current management including the diuretic therapy, beta niranjan and amiodarone. Will consult Physical Therapy to start working with Mr. Palacios. I will follow up with further recommendations from the other subspecialties involved. cc: Vishnu Puente MD
[2020-01-30] MEDS: PRAVACHOL PO SCH (20:26)
[2020-01-30] MEDS: PRILOSEC PO SCH (20:26)
[2020-01-30] MEDS: VENOFER 200 MG in NS 100 ML IV SCH (20:26)
[2020-01-31 05:11] LABS: HEMATOCRIT 27.6 % (42.0-52.0); HEMOGLOBIN 8.2 g/dL (14.0-18.0); MCH 20.4 PG (27-31); MCHC 29.7 g/dL (33-37); MCV 68.8 FL (81-99); MPV 8.9 FL (7.4-10.4); RBC 4.01 XMIL (4.7-6.1); RDW 25.5 % (11.5-14.5); WBC 10.35 X1000 (4.8-10.8)
[2020-01-31 05:16] LABS: CALCIUM 8.4 mg/dL (8.8-10.2); CREATININE 1.4 mg/dL (0.7-1.2); PHOSPHORUS 3.1 mg/dL (2.7-4.5); POTASSIUM 3.1 mmol/L (3.5-5.1)
[2020-01-31] MEDS: LASIX IV SCH ×2 (05:32→17:32)
--- NOTE | 2020-01-31 07:17 | EKG Report ---
Test Performed on : 01/31/2020 06:52:19 AM Test Reason : rhythm change Blood Pressure : / mmHG Vent. Rate : 065 BPM Atrial Rate : 053 BPM P-R Int : 132 ms QRS Dur : 138 ms QT Int : 442 ms P-R-T Axes : 000 049 -16 degrees QTc Int : 459 ms Sinus bradycardia. with premature atrial complexes. Right bundle branch block Abnormal ECG When compared with ECG of 30-JAN-2020 13:13, (Unconfirmed) QRS axis shifted right Nonspecific T wave abnormality now evident in Inferior leads T wave inversion more evident in Anterior leads Unconfirmed Result
[2020-01-31] MEDS: SYMBICORT 160/4.5 MICROGM INHALER INH SCH ×2 (08:16→21:30)
[2020-01-31] MEDS: INCRUSE ELLIPTA INH SCH (08:16)
[2020-01-31] MEDS: NICODERM PATCH TD SCH (08:23)
[2020-01-31] MEDS: VENOFER 200 MG in NS 100 ML IV SCH (08:23)
[2020-01-31] MEDS: KLOR-CON PO SCH ×3 (08:24→17:32)
[2020-01-31] MEDS: ASPIRIN PO SCH (08:24)
[2020-01-31] MEDS: TOPROL XL PO SCH (08:24)
[2020-01-31] MEDS: ELIQUIS PO SCH ×2 (08:25→21:43)
[2020-01-31] MEDS: CYMBALTA PO SCH ×2 (08:25→21:43)
[2020-01-31] MEDS: FLOMAX PO SCH (08:25)
[2020-01-31] MEDS: CORDARONE PO SCH ×2 (08:25→21:43)
[2020-01-31] MEDS: FERROUS SULFATE PO SCH (08:25)
--- NOTE | 2020-01-31 14:04 | PROGRESS NOTE ---
DATE: 01/31/2020 INTERVAL HISTORY: No acute events overnight. The patient remained on nonrebreather mask. In the morning time we titrated his oxygen down to nasal cannula and he was saturating 88%. It appears he has profound sleep apnea and whenever he would go to sleep his oxygen saturation will drop to as low as 84% so he was put on Ventimask. SUBJECTIVE: He denies any chest pain. His shortness of breath is better. His cough is occasional. He denies any nausea, vomiting, abdominal pain. VITALS: Currently temperature 97.3 degrees, pulse 59, respiratory 22, blood pressure 118/62, he is saturating 87% on Venturi mask. PHYSICAL EXAMINATION: Not in acute distress. Oral cavity is moist. Air entry bilaterally equal. No wheeze or rhonchi. He had crackles in infrascapular region. S1, S2 normal. No murmur, rub or gallop.Abdomen: Soft, nontender. He has a bilateral lower extremity edema more pronounced on right lower extremity where there is also erythema. Input and output suggest -1.6 L yesterday, - 200 mL so far today. LABS: Has microcytic anemia with hemoglobin of 8.2, potassium of 3.1 which is currently being repleted, creatinine improved to 1.4. Microbiology, blood cultures no growth till date. IMAGING: No new chest x-ray. ASSESSMENT AND PLAN: 1. Acute hypoxic respiratory failure due to acute pulmonary edema due to acute diastolic congestive heart failure. His ejection fraction was 65%. He likely has diastolic heart failure secondary to his previous history of obstructive sleep apnea. Continue intravenous Lasix. I will also continue his home metoprolol succinate and add spironolactone to his regimen. 2. Acute kidney injury versus acute on chronic kidney disease stage 3, there could be a component of cardiorenal syndrome since his kidney function improved after diuresis. I will replete potassium for his hypokalemia and follow up with magnesium level. Hopefully spironolactone would also help increase potassium level. 3. History of paroxysmal atrial fibrillation and medically treated coronary artery disease. Continue home amiodarone, aspirin, apixaban, pravastatin. 4. History of chronic microcytic hypochromic iron deficiency anemia. He would need outpatient GI followup. I had counseled him about it. Continue intravenous iron. 5. Others. I will continue physical therapy. He previously had chronic hypoxic respiratory failure due to obstructive sleep apnea. He also had palatopharyngoplasty though sleep study in 2018 detected persistent sleep apnea. I will call patient's daughter, inform about plan of care. cc: Tam Wright MD
[2020-01-31] MEDS: ALDACTONE PO SCH (15:12)
[2020-01-31] MEDS: PRILOSEC PO SCH (21:42)
[2020-01-31] MEDS: PRAVACHOL PO SCH (21:43)
[2020-02-01] MEDS: LASIX IV SCH ×2 (05:11→16:48)
[2020-02-01 07:46] LABS: CALCIUM 8.6 mg/dL (8.8-10.2); CREATININE 1.2 mg/dL (0.7-1.2); MAGNESIUM 1.4 mg/dL (1.5-2.7); POTASSIUM 3.3 mmol/L (3.5-5.1)
[2020-02-01] MEDS ORDERED: CLEOCIN PO SCH (08:00)
[2020-02-01] MEDS: SYMBICORT 160/4.5 MICROGM INHALER INH SCH ×2 (08:38→19:39)
[2020-02-01] MEDS: INCRUSE ELLIPTA INH SCH (08:38)
[2020-02-01] MEDS: VENOFER 200 MG in NS 100 ML IV SCH (08:48)
[2020-02-01] MEDS: FERROUS SULFATE PO SCH (08:48)
[2020-02-01] MEDS: CYMBALTA PO SCH ×2 (08:48→21:43)
[2020-02-01] MEDS: ELIQUIS PO SCH ×2 (08:48→21:43)
[2020-02-01] MEDS: KLOR-CON PO SCH ×3 (08:48→16:48)
[2020-02-01] MEDS: FLOMAX PO SCH (08:48)
[2020-02-01] MEDS: NICODERM PATCH TD SCH (08:48)
[2020-02-01] MEDS: TOPROL XL PO SCH (08:48)
[2020-02-01] MEDS: ALDACTONE PO SCH (08:49)
[2020-02-01] MEDS: CORDARONE PO SCH (08:49)
[2020-02-01] MEDS: ASPIRIN PO SCH (08:49)
[2020-02-01 08:51] LABS: ALLEN TEST YES; BE 10.3 mmoll (-3.0-3.0); BLOOD TYPE ARTERIAL; HCO3-(ACT) 32.8 mmoll (20.0-26.0); METHB 0.7 % (0.0-1.5); O2(CT) 13.5 mL/dL (15.0-23.0); O2HB 90.2 % (95.0-99.0); PO2(98.6) 58 mmHg (60-100); SAMPLE BLOOD; SAO2 92.8 % (95.0-100.0); THB 10.6 g/dL (11.5-17.4); pH(98.6) 7.44 (7.35-7.45)
[2020-02-01 08:52] LABS: MODALITY PRB; PCO2(98.6) 53 mmHg (35-45)
[2020-02-01] MEDS: HYDROCORTISONE 1% OINTMENT TOP SCH ×2 (08:55→21:43)
--- NOTE | 2020-02-01 09:48 | PROGRESS NOTE ---
DATE: 02/01/2020 INTERVAL HISTORY: Mr. Palacios was put back on a partial nonrebreather mask yesterday since his oxygen saturation had started dropping on nasal cannula. He was negative 700 mL so far today. The labs were pending. SUBJECTIVE: Mr. Palacios denies new complaints. He denies chest pain. He denies shortness of breath at rest. He says his cough is currently at baseline. He denies nausea, vomiting, abdominal pain. He says he was supposed to use CPAP, but he has not been using it. REVIEW OF SYSTEMS: Negative for constipation. Negative for diarrhea. Negative for headache. Negative for palpitation. OBJECTIVE: Vital Signs: Temperature 97 degrees, pulse 58, respiratory rate 19, blood pressure 111/58, he is saturating 96% on 60% nonrebreather mask. General: Not in acute distress. HEENT: Oral cavity is moist. Lungs: Air entry bilaterally equal. No wheeze or rhonchi. Mild crackles in infrascapular region. Heart: S1, S2 normal. No murmur, rub, or gallop. Abdomen: Soft, nontender. Neck: He has mild jugular venous distention. Extremities: He has lower extremity edema, more pronounced on the right. I could also see some contact dermatitis and an ulcer on the lateral aspect of right foot. Input and output suggest positive 1.1 L today. LABORATORY DATA: No CBC today. ABG was ordered, which suggests hypoxic hypercapnic respiratory failure. Potassium is 3.3. His magnesium is 1.4, which is currently being repleted. He does have improvement in his BUN and creatinine. His proBNP has decreased from 4000 on presentation to 2100. MICROBIOLOGY/IMAGING: No new microbiological or imaging data. ASSESSMENT AND PLAN: 1. Acute hypoxic hypercapnic respiratory failure due to acute pulmonary edema due to acute diastolic congestive heart failure with ejection fraction of 65% due to chronic obstructive pulmonary disease and obstructive sleep apnea. Continue intravenous Lasix, oxygen to maintain saturation 88% to 92%. He has been noncompliant with continuous positive airway pressure at home. I will start him on bilevel positive airway pressure while asleep and at nighttime, and cycle it with nasal cannula for his acute hypercapnic respiratory failure, which is due to sleep apnea and chronic obstructive pulmonary disease. 2. Acute on chronic congestive heart failure with preserved ejection fraction due to sleep apnea and chronic obstructive pulmonary disease, and now likely acute cor pulmonale. Continue intravenous Lasix, spironolactone, metoprolol, and I will consider adding angiotensin- converting enzyme inhibitors to his regimen. His hypokalemia and hypomagnesemia are currently being repleted. 3. History of paroxysmal atrial fibrillation and medically-treated coronary artery disease. Continue home aspirin, amiodarone, apixaban, pravastatin, and metoprolol. I will discontinue nighttime metoprolol considering his bradycardia, and continue metoprolol every morning. 4. Acute kidney injury with improvement with diuresis, which could suggest cardiorenal syndrome type 1. Kidney function is improving. 5. Chronic microcytic hypochromic iron-deficiency anemia. Continue intravenous iron. He would need outpatient Gastroenterology workup. 6. Others. Continue physical therapy. I will continue to monitor the patient inside the hospital. I called the patient's daughter on the phone yesterday. I had discussed with her about the patient's congestive heart failure, respiratory failure, sleep apnea, chronic obstructive pulmonary disease, active tobacco abuse. I had discussed with her about management options. I had discussed with her that unfortunately, Mr. Palacios has accumulated a lot of medical conditions and would need close medical followup with various providers. She was allowed to ask questions. Her questions were answered. Time spent: 35 minutes cc: MD BLOSSOM Tay
[2020-02-01] MEDS: MAGNESIUM SULFATE 2 GM/S.W.I. 2 GM/50 ML IVPB IV SCH ×2 (09:57→14:20)
[2020-02-01] MEDS ORDERED: POTASSIUM CHLORIDE 20 MEQ/SWI 20 MEQ/100 ML IVPB IV ONE (10:00)
[2020-02-01] MEDS: HALDOL IV PRN (10:38)
[2020-02-01] MEDS ORDERED: DUONEB (A & A) INH PRN (16:45)
[2020-02-01] MEDS: PRAVACHOL PO SCH (21:43)
[2020-02-01] MEDS: PRILOSEC PO SCH (21:43)
[2020-02-02 05:29] LABS: ALLEN TEST YES; BE 10.6 mmoll (-3.0-3.0); BLOOD TYPE ARTERIAL; HCO3-(ACT) 33.1 mmoll (20.0-26.0); METHB 1.2 % (0.0-1.5); O2(CT) 11.3 mL/dL (15.0-23.0); PCO2(98.6) 46 mmHg (35-45); PO2(98.6) 62 mmHg (60-100); SAMPLE BLOOD; SAO2 95.3 % (95.0-100.0); THB 8.7 g/dL (11.5-17.4); pH(98.6) 7.49 (7.35-7.45)
[2020-02-02 05:30] LABS: MODALITY CANNULA
[2020-02-02] MEDS: LASIX IV SCH (06:03)
[2020-02-02 06:33] LABS: AGAP 13; BUN 16 mg/dL (8-22); CALCIUM 8.8 mg/dL (8.8-10.2); CHLORIDE 96 mmol/L (98-107); COSMO 282; CREATININE 1.1 mg/dL (0.7-1.2); ESTIMATED GFR > 60; GLUCOSE 87 mg/dL (70-104); MAGNESIUM 2.1 mg/dL (1.5-2.7); POTASSIUM 3.2 mmol/L (3.5-5.1); SODIUM 141 mmol/L (136-145); TCO2 32 mmol/L (25-35)
[2020-02-02] MEDS: SYMBICORT 160/4.5 MICROGM INHALER INH SCH ×2 (08:06→19:50)
[2020-02-02] MEDS: VENOFER 200 MG in NS 100 ML IV SCH (08:50)
[2020-02-02] MEDS: TOPROL XL PO SCH (08:50)
[2020-02-02] MEDS: KLOR-CON PO SCH ×3 (08:50→16:14)
[2020-02-02] MEDS: NICODERM PATCH TD SCH (08:50)
[2020-02-02] MEDS: FLOMAX PO SCH (08:51)
[2020-02-02] MEDS: ELIQUIS PO SCH ×2 (08:51→21:47)
[2020-02-02] MEDS: FERROUS SULFATE PO SCH (08:51)
[2020-02-02] MEDS: HYDROCORTISONE 1% OINTMENT TOP SCH ×2 (08:51→21:47)
[2020-02-02] MEDS: ALDACTONE PO SCH (08:51)
[2020-02-02] MEDS: CYMBALTA PO SCH ×2 (08:51→21:47)
[2020-02-02] MEDS: ASPIRIN PO SCH (08:51)
[2020-02-02] MEDS: POTASSIUM CHLORIDE 20 MEQ/SWI 20 MEQ/100 ML IVPB IV SCH ×3 (09:37→16:14)
--- NOTE | 2020-02-02 13:27 | PROGRESS NOTE ---
DATE: 02/02/2020 INTERVAL HISTORY: No acute events overnight. Mr. Palacios was using BiPAP, and it has helped his pCO2. He was able to sit in the chair, and he was saturating 96% on 3 L nasal cannula at the time of my evaluation. Currently, his vital signs suggests temperature 97.7 degrees, pulse 71, respiratory rate 19, and blood pressure 114/52. He is saturating 95% on 3 L nasal cannula. SUBJECTIVE: He denies any chest pain, shortness of breath, or cough. He denies nausea, vomiting, or abdominal pain. His amiodarone was held because he was becoming bradycardic. Review of system: Negative for chest pain. Negative diarrhea. Negative for headache. OBJECTIVE: Oral cavity is moist. Air entry bilaterally equal. No wheeze or rhonchi. Mild crackles infrascapular region. S1, S2 normal. No murmur or gallop. Abdomen is soft and nontender. No jugular venous distention. He has mild lower extremity edema on the right side with some contact dermatitis and ulcer. He is alert and oriented x3. Yesterday, he was -400 mL. LABORATORY: No CBC today. His ABG suggests pCO2 of 46. His potassium of 3.2, currently being repleted. BUN 16, creatinine 1.1. MICROBIOLOGY: No positive data. IMAGING: No new data. ASSESSMENT AND PLAN: 1. Acute hypoxic hypercapnic respiratory failure due to acute pulmonary edema due to acute diastolic congestive heart failure with ejection fraction of 65%, acute cor pulmonale. Follow up with proBNP tomorrow. 2. Acute congestive heart failure with preserved ejection fraction and acute cor pulmonale due to sleep apnea and COPD. Change to oral Lasix. Continue spironolactone, and metoprolol. His hypokalemia is currently being repleted. He has not been compliant with using nasal cannula as well as his trilogy machine at home. I strongly recommended that he should start using them. He should follow up with Dr. Ceja who is his outpatient infection prevention coordinator, and he should establish care with a lung doctor. 3. History of paroxysmal atrial fibrillation and medically treated coronary artery disease. Continue home aspirin, pravastatin, Eliquis and metoprolol. I requested the outpatient records from his infection prevention coordinator office, and I will resume amiodarone accordingly. I am currently holding it because of his bradycardia. 4. Acute kidney injury, likely due to cardiorenal syndrome type 1, now improved after diuresis. 5. Chronic microcytic hypochromic iron deficiency anemia, status post intravenous iron. He would need outpatient GI followup. 6. Others. Continue physical therapy. Continue to cycle BiPAP and nasal cannula. I had a detailed discussion about his medical condition with his daughter yesterday, and had discussed with her about the patient's multiple comorbidities and need for close follow up with doctors. I answered all of her questions. DISPOSITION: If the patient's proBNP comes down tomorrow and he is able to maintain adequate saturation while awake on nasal cannula, he could be discharged home. The patient is in agreement. ADDENDUM: Reviewed his home medication list from the infection prevention coordinator's office. He is on Metoprolol succinate ER 100 daily and amiodarone 200 daily which I will resume. I called his daughter today and updated her about patient's clinical condition, multiple comorbidities. I discussed with her that Mr. Palacios would need a close follow up with multiple providers outpatient. I answered all of her questions. Time spent: 35 minutes. cc: Tam Wright MD MTDD
[2020-02-02] MEDS: LASIX PO SCH ×2 (16:14→17:47)
[2020-02-02] MEDS: PRILOSEC PO SCH (21:47)
[2020-02-02] MEDS: PRAVACHOL PO SCH (21:47)
[2020-02-03] MEDS: HALDOL IV PRN (01:42)
[2020-02-03 05:38] LABS: BASO# 0.08 X1000 (0.0-0.2); BASO% 0.8 % (0.0-0.8); HEMATOCRIT 30.4 % (42.0-52.0); HEMOGLOBIN 9.1 g/dL (14.0-18.0); LYMPH# 0.98 X1000 (1.2-3.4); LYMPH% 10.3 % (20.5-51.1); MCH 20.8 PG (27-31); MCHC 29.9 g/dL (33-37); MCV 69.4 FL (81-99); MONO# 0.74 X1000 (0.11-0.59); MONO% 7.8 % (1.7-9.3); MPV 8.8 FL (7.4-10.4); PLT 200 X1000 (130-400); RBC 4.38 XMIL (4.7-6.1); RDW 27.7 % (11.5-14.5); WBC 9.51 X1000 (4.8-10.8)
[2020-02-03] MEDS: LASIX PO SCH (06:14)
[2020-02-03 06:15] LABS: AGAP 13; BUN 17 mg/dL (8-22); CALCIUM 9.1 mg/dL (8.8-10.2); CHLORIDE 95 mmol/L (98-107); COSMO 275; CREATININE 1.1 mg/dL (0.7-1.2); ESTIMATED GFR > 60; GLUCOSE 96 mg/dL (70-104); POTASSIUM 4.3 mmol/L (3.5-5.1); SODIUM 137 mmol/L (136-145); TCO2 29 mmol/L (25-35)
[2020-02-03 06:54] LABS: LYMPHS 8 % (21-51); MONO 4 % (1-9); SEGS 88 % (42-75)
[2020-02-03] MEDS: SYMBICORT 160/4.5 MICROGM INHALER INH SCH (07:46)
[2020-02-03] MEDS: KLOR-CON PO SCH (08:55)
[2020-02-03] MEDS: CYMBALTA PO SCH (08:58)
[2020-02-03] MEDS: TOPROL XL PO SCH (08:58)
[2020-02-03] MEDS: ASPIRIN PO SCH (08:58)
[2020-02-03] MEDS: ALDACTONE PO SCH (08:59)
[2020-02-03] MEDS: ELIQUIS PO SCH (08:59)
[2020-02-03] MEDS: FERROUS SULFATE PO SCH (08:59)
[2020-02-03] MEDS: NICODERM PATCH TD SCH (08:59)
[2020-02-03] MEDS: FLOMAX PO SCH (09:00)
[2020-02-03] MEDS: HYDROCORTISONE 1% OINTMENT TOP SCH (09:00)
[2020-02-03] MEDS ORDERED: CORDARONE PO SCH (09:00)
[2020-02-03 11:04] VITALS: BP 106/61
[2020-02-03] MEDS ORDERED: PNEUMOVAX 23 IM ONE (11:34)
--- NOTE | 2020-02-04 08:31 | DISCHARGE SUMMARY ---
ADMISSION DATE: 01/28/2020 DISCHARGE DATE: 02/03/2020 ADMISSION DIAGNOSES: 1. Possible new onset of congestive heart failure. 2. Acute respiratory failure. 3. Diabetes mellitus type 2. 4. Tobacco abuse. 5. Chronic kidney disease. DISCHARGE DIAGNOSES: 1. Acute hypoxemic, hypercapnic respiratory failure due to pulmonary edema. 2. Diastolic congestive heart failure with ejection fraction of 65%. 3. Acute cor pulmonale due to sleep apnea and chronic obstructive pulmonary disease. 4. History of paroxysmal atrial fibrillation. 5. Medically treated coronary artery disease. 6. Acute kidney injury, likely due to cardiorenal syndrome, improved after diuresis. 7. Chronic microcytic, hypochromic iron deficiency anemia, status post intravenous iron. CONSULTS: Dr. Alvin Yip. DIAGNOSTICS: 1. Chest x-ray revealed stable cardiomegaly and pulmonary vascular congestion. No significant change in the hazy increased markings in the lung bases compared to 01/14/2020 but most suggestive of pulmonary edema or perhaps some fibrosis. 2. On 01/29/2020 chest x-ray, cardiomegaly and bibasilar subsegmental atelectasis with mild pulmonary edema. 3. Renal ultrasound revealed a normal renal ultrasound. MICROBIOLOGY: Blood cultures x2 revealed no growth after 5 days. HOSPITAL COURSE: Mr. Palacios was admitted to hospital with increasing shortness of breath after being discharged from the hospital on 01/17/2020 for bilateral lower lobe pneumonia, acute respiratory failure with COPD exacerbation. He is on home O2. On arrival to the emergency room, he had an O2 saturation of 86% on 4 L nasal cannula. It decreased on Ventimask. During the hospitalization, he was cycled from BiPAP to nasal cannula and is able to be discharged back to his home setting. His medications were adjusted. Metoprolol and spironolactone were added. We did continue his home medications. He was evaluated by nephrology. Renal ultrasound was negative. Creatinine did return to normal. During the hospitalization, he was diuresed for a negative accumulative output balance of 8027. Electrolytes were followed and repleted as appropriate. Thankfully, he is ready for discharge. DISCHARGE VITAL SIGNS: Blood pressure is 106/61, with a heart rate of 63, respirations 18, temperature 97.9 degrees oral, with O2 saturations that are 97-98% on 3 L nasal cannula. DISCHARGE MEDICATIONS: 1. Amiodarone 200 mg p.o. daily. 2. Eliquis 5 mg p.o. b.i.d. 3. Aspirin 81 mg p.o. daily. 4. Symbicort 160/4.5 p.o. b.i.d. 5. Duloxetine 60 mg p.o. b.i.d. 6. Ferrous sulfate 325 p.o. daily. 7. Lasix 40 mg p.o. daily. 8. DuoNeb as directed. 9. Metformin 500 mg p.o. b.i.d. 10. Metoprolol succinate 100 mg p.o. daily. 11. Omeprazole 40 mg p.o. at bedtime. 12. Pravachol 40 mg p.o. at bedtime. 13. Spironolactone 25 mg p.o. daily. 14. Tamsulosin 0.4 mg p.o. daily FOLLOWUP: 1. Dr. Nidhi Cooper. He needs to call in the morning to schedule an appointment to be seen in the next 1 to [address] Jamaal River. He needs to call to schedule an appointment in next 1 to 2 weeks for COPD and sleep apnea evaluation. 3. Dr. Satinder Cross. Call in the next 1 to 2 weeks for a followup appointment. 4. He will be followed with [facility]. This is a greater than 30 minute discharge. He was instructed to call to be seen sooner or return to the ER for any syncope, dizziness, chest pain, palpitations, temperature greater than 101, any increasing shortness of breath, nausea, vomiting, diarrhea, constipation, any black or bloody vomitus or stools, or for any questions or concerns that he may have. Dictated by DWIGHT Campbell for Vishnu Puente MD cc: DWIGHT Campbell MD Marlin D. Gill, MD I have seen and examined Mr Palacios today. He is clinically stable to be discharged. I have also reviewed his medications and reconciled his home medication list. I agree with the above discharge summary. I have discussed all the discharge plans with Mr. Palacios. All his questions and concerns addressed. [facility] CENTERIsaac
== END 2020-02-03 13:20 | disposition home health service (06) | DRG 291 ==
LOC: ED 12:26 → SUATTDRO 16:22 → 2N 16:22
PROVIDERS: ATTEND Internal Medicine